=== PATIENT | female | born 1955 | race Caucasian/White ===

== ENCOUNTER → 2017-07-06 10:37 | Outpatient (REF) | payer MEDICAID, SELFPAY ==
[2017-07-06 13:26] LABS: Basophils % 0.5 % (0.1-2.0); Eosinophils # 0.1 K/mm3 (0.0-0.4); Eosinophils % 3.3 % (0.1-12.0); Hematocrit 42.1 % (37.0-47.0); Hemoglobin 13.7 g/dL (12.2-16.2); Lymphocytes # 1.5 K/mm3 (0.7-4.5); Lymphocytes % 35.1 K/mm3 (10-50); Mean Corpuscular HGB Conc 32.6 g/dL (31.8-35.4); Mean Corpuscular Hemoglobin 27.4 pg (27.0-31.2); Mean Corpuscular Volume 84.1 fl (81-99); Mean Platelet Volume 8.8 fl (7.4-10.4); Monocytes # 0.2 K/mm3 (0.1-1.0); Monocytes % 5.6 % (1.7-9.3); Neutrophils # 2.4 K/mm3 (1.8-7.8); Neutrophils % 55.5 % (37.0-80.0); Platelet Count 177 K/mm3 (142-424); Red Blood Count 5.01 M/mm3 (4.20-5.40); Red Cell Distribution Width 13.7 % (11.5-17.5); White Blood Count 4.3 K/mm3 (4.8-10.8)
[2017-07-06 13:51] LABS: Alanine Aminotransferase 44 U/L (12-78); Albumin Level 4.2 gm/dL (3.4-5.0); Albumin/Globulin Ratio 1.2 (1.1-1.8); Alkaline Phosphatase 87 U/L (46-116); Anion Gap 14.4 mEq/L (5-15); Aspartate Amino Transferase 38 U/L (15-37); Bilirubin,Total 0.6 mg/dL (0.2-1.0); Blood Urea Nitrogen 11 mg/dL (7-18); Calcium 9.8 mg/dL (8.5-10.1); Carbon Dioxide 28 mmol/L (21.0-32.0); Chloride 101 mmol/L (98-107); Chol/HDL Ratio 2.5 (1-3.5); Cholesterol 122 mg/dL (140-200); Creatinine,Serum 0.61 mg/dL (0.55-1.02); Estimated Glomerular Filt Rate 99 ml/min (>60); GFR (African American) 120 ML/MIN (>60); Globulin 3.4 gm/dl (1.3-3.2); Glucose 325 mg/dL (74-106); HDL Cholesterol 48 mg/dL (29-89); LDL Cholesterol 36 mg/dL (0-130); Potassium 4.4 mmoL/L (3.5-5.1); Sodium 139 mmol/L (136-145); T4 (Thyroxine) 10.9 ug/dl (4.7-13.3); Thyroid Stimulating Hormone 2.11 uIU/ml (0.358-3.740); Total Protein,Serum 7.6 gm/dL (6.4-8.2); Triglycerides 191 mg/dL (30-200); VLDL Cholesterol 38 mg/dL (0-40)
[2017-07-06 14:40] LABS: Hemoglobin A1C 9.6 % (0.0-7.0)
[2017-07-07 10:19] LABS: Vitamin B12 303 pg/mL (232-1245); Vitamin D 25 Hydroxy 26.1 ng/mL (30.0-100.0)
== END ==
LOC: LAB 10:37
PROVIDERS: Visit Provider Physician Assistant
DX: E11.9 Type 2 diabetes mellitus without complications (principal); E78.5 Hyperlipidemia, unspecified; D51.9 Vitamin B12 deficiency anemia, unspecified; E55.9 Vitamin D deficiency, unspecified
CPT/HCPCS: 80053; 80061; 82607; 82652; 83036; 84436; 84443; 85025

== ENCOUNTER → 2017-07-26 07:05 | Outpatient (CLI) | payer MEDICAID, SELFPAY ==
--- NOTE | 2017-07-26 07:07 | NM_ITS ---
SPECT MYOCARDIAL PERFUSION SCAN, REST AND STRESS: EXERCISE STRESS: [facility] REVIEW QGS EF AND WALL MOTION EVALUATION: QPS - PERFUSION EVALUATION: HISTORY: Chest pain PROCEDURE: Rest imaging performed after administration of10.51 millicuries Tc MIBI. Dose administered at7:30 a.m., with imaging thereafter. Stress imaging was then performed following6 minutes 46 seconds of exercise stress. The patient achieved a heart [id number] with projected heart rate of134 . Resting BP109/54 with stress 125/64. At maximum exercise stress,29.4 millicuries Tc MIBI administered at9:20 a.m. with [id number] minutes thereafter. FINDINGS: Perfusion Evaluation: The single slice spect images as well as the [facility] bull's-eye data summary were reviewed. Wall Motion and Ejection Fraction Evaluation: Gated SPECT review and analysis used to evaluate these features. There is a 67 % left ventricular ejection fraction. There seems to be good wall motion Uniform myocardial activity at both stress and rest gated images calculated ejection fraction of 67% with normal wall motion IMPRESSION: No scintigraphic evidence of exercise-induced myocardial ischemia normal ejection fraction normal wall motion
--- NOTE | 2017-07-26 09:51 | HMH.ITSHM ---
metformin glipizide invokana buspirone lipitor pramipril carvedilol asa omeprazole vit b3 vit d meclizine
== END ==
PROVIDERS: PCP Physician Assistant; Visit Provider Internal Medicine
DX: I25.10 Atherosclerotic heart disease of native coronary artery without angina pectoris (principal); I20.8 Other forms of angina pectoris; I11.9 Hypertensive heart disease without heart failure; E78.5 Hyperlipidemia, unspecified; E11.9 Type 2 diabetes mellitus without complications; R42 Dizziness and giddiness
CPT/HCPCS: 78452; 93017; 93306; A9502

== ENCOUNTER → 2018-05-08 14:47 | Outpatient (CLI) | payer MEDICAID, SELFPAY ==
[2018-05-08 15:17] LABS: Basophils # 0.1 K/mm3 (0-0.2); Eosinophils # 0.2 K/mm3 (0.0-0.4); Eosinophils % 3.2 % (0.1-12.0); Hematocrit 42.4 % (37.0-47.0); Lymphocytes # 1.6 K/mm3 (0.7-4.5); Lymphocytes % 30.4 % (10-50); Mean Corpuscular Hemoglobin 27.4 pg (27.0-31.2); Mean Platelet Volume 8.9 fl (7.4-10.4); Monocytes # 0.3 K/mm3 (0.1-1.0); Neutrophils # 3.2 K/mm3 (1.8-7.8); Neutrophils % 59.4 % (37.0-80.0); Platelet Count 236 K/mm3 (142-424); Red Blood Count 5.11 M/mm3 (4.20-5.40); Red Cell Distribution Width 14.2 % (11.5-17.5); White Blood Count 5.4 K/mm3 (4.8-10.8)
[2018-05-08 15:59] LABS: Alanine Aminotransferase 41 U/L (12-78); Albumin Level 4.2 gm/dL (3.4-5.0); Albumin/Globulin Ratio 1.1 (1.1-1.8); Alkaline Phosphatase 78 U/L (46-116); Anion Gap 16.3 mEq/L (5-15); Aspartate Amino Transferase 22 U/L (15-37); Bilirubin,Total 0.5 mg/dL (0.2-1.0); Blood Urea Nitrogen 14 mg/dL (7-18); Calcium 9.6 mg/dL (8.5-10.1); Carbon Dioxide 26 mmol/L (21.0-32.0); Chloride 101 mmol/L (98-107); Chol/HDL Ratio 3.6 (1-3.5); Cholesterol 211 mg/dL (140-200); Creatinine,Serum 0.63 mg/dL (0.55-1.02); Estimated Glomerular Filt Rate 95 ml/min (>60); GFR (African American) 115 ML/MIN (>60); Globulin 3.7 gm/dl (1.3-3.2); Glucose 190 mg/dL (74-106); HDL Cholesterol 58 mg/dL (29-89); LDL Cholesterol 106 mg/dL (0-130); Potassium 4.3 mmoL/L (3.5-5.1); Sodium 139 mmol/L (136-145); T4 (Thyroxine) 10.7 ug/dl (4.7-13.3); Thyroid Stimulating Hormone 2.07 uIU/ml (0.358-3.740); Total Protein,Serum 7.9 gm/dL (6.4-8.2); Triglycerides 234 mg/dL (30-200); VLDL Cholesterol 47 mg/dL (0-40)
[2018-05-08 16:24] LABS: Hemoglobin A1C 9.6 % (0.0-7.0)
[2018-05-12 10:06] LABS: Vitamin B12 265 pg/mL (232-1245); Vitamin D 25 Hydroxy 21.8 ng/mL (30.0-100.0)
[2018-05-12 10:08] LABS: Microalbumin, Urine 6.9 ug/mL (Not Estab.)
== END ==
PROVIDERS: Visit Provider Physician Assistant
DX: E11.9 Type 2 diabetes mellitus without complications (principal); E55.9 Vitamin D deficiency, unspecified; D51.9 Vitamin B12 deficiency anemia, unspecified; E78.5 Hyperlipidemia, unspecified
CPT/HCPCS: 80053; 80061; 82043; 82607; 82652; 83036; 84436; 84443; 85025

== ENCOUNTER → 2018-09-21 17:34 | Outpatient (CLI) | payer MEDICAID, SELFPAY | PROVIDERS: Visit Provider Nurse Practitioner Family | DX: J02.9 Acute pharyngitis, unspecified (principal) ==

== ENCOUNTER → 2018-10-16 13:29 | Outpatient (CLI) | payer MEDICAID, SELFPAY ==
[2018-10-16 14:32] LABS: Basophils # 0.1 K/mm3 (0-0.2); Eosinophils # 0.2 K/mm3 (0.0-0.4); Eosinophils % 3.4 % (0.1-12.0); Hematocrit 40.9 % (37.0-47.0); Hemoglobin 13.2 g/dL (12.2-16.2); Lymphocytes # 1.9 K/mm3 (0.7-4.5); Lymphocytes % 38.8 % (10-50); Mean Corpuscular HGB Conc 32.2 g/dL (31.8-35.4); Mean Corpuscular Hemoglobin 27.3 pg (27.0-31.2); Mean Corpuscular Volume 84.9 fl (81-99); Mean Platelet Volume 7.9 fl (7.4-10.4); Monocytes # 0.4 K/mm3 (0.1-1.0); Monocytes % 8.5 % (1.7-9.3); Neutrophils # 2.4 K/mm3 (1.8-7.8); Neutrophils % 48.3 % (37.0-80.0); Platelet Count 239 K/mm3 (142-424); Red Blood Count 4.82 M/mm3 (4.20-5.40); Red Cell Distribution Width 14.4 % (11.5-17.5); White Blood Count 4.9 K/mm3 (4.8-10.8)
[2018-10-16 14:55] LABS: Alanine Aminotransferase 37 U/L (12-78); Albumin Level 4.1 gm/dL (3.4-5.0); Albumin/Globulin Ratio 1.2 (1.1-1.8); Alkaline Phosphatase 89 U/L (46-116); Anion Gap 15.8 mEq/L (5-15); Aspartate Amino Transferase 16 U/L (15-37); Bilirubin,Total 0.4 mg/dL (0.2-1.0); Blood Urea Nitrogen 9 mg/dL (7-18); Calcium 9.7 mg/dL (8.5-10.1); Carbon Dioxide 26 mmol/L (21.0-32.0); Chloride 103 mmol/L (98-107); Chol/HDL Ratio 3.8 (1-3.5); Cholesterol 190 mg/dL (140-200); Creatinine,Serum 0.63 mg/dL (0.55-1.02); Estimated Glomerular Filt Rate 95 ml/min (>60); GFR (African American) 115 ML/MIN (>60); Globulin 3.5 gm/dl (1.3-3.2); Glucose 187 mg/dL (74-106); HDL Cholesterol 50 mg/dL (29-89); LDL Cholesterol 92 mg/dL (0-130); Potassium 3.8 mmoL/L (3.5-5.1); Sodium 141 mmol/L (136-145); T4 (Thyroxine) 10.7 ug/dl (4.7-13.3); Thyroid Stimulating Hormone 2.54 uIU/ml (0.358-3.740); Total Protein,Serum 7.6 gm/dL (6.4-8.2); Triglycerides 241 mg/dL (30-200); VLDL Cholesterol 48 mg/dL (0-40)
[2018-10-16 21:28] LABS: Hemoglobin A1C 8.9 % (0.0-7.0)
[2018-10-17 10:05] LABS: Vitamin D 25 Hydroxy 15.2 ng/mL (30.0-100.0)
== END ==
PROVIDERS: Visit Provider Physician Assistant
DX: E11.9 Type 2 diabetes mellitus without complications (principal); Z79.84 Long term (current) use of oral hypoglycemic drugs; Z79.4 Long term (current) use of insulin
CPT/HCPCS: 80053; 80061; 82652; 83036; 84436; 84443; 85025

== ENCOUNTER → 2019-02-19 13:48 | Outpatient (CLI) | payer MEDICAID, SELFPAY ==
[2019-02-19 15:17] LABS: Basophils % 0.8 % (0.1-2.0); Eosinophils # 0.2 K/mm3 (0.0-0.4); Eosinophils % 3.3 % (0.1-12.0); Hematocrit 40.6 % (37.0-47.0); Hemoglobin 13.4 g/dL (12.2-16.2); Lymphocytes # 1.7 K/mm3 (0.7-4.5); Mean Corpuscular HGB Conc 32.9 g/dL (31.8-35.4); Mean Corpuscular Hemoglobin 27.5 pg (27.0-31.2); Mean Corpuscular Volume 83.6 fl (81-99); Mean Platelet Volume 8.4 fl (7.4-10.4); Monocytes # 0.3 K/mm3 (0.1-1.0); Monocytes % 6.7 % (1.7-9.3); Neutrophils # 2.7 K/mm3 (1.8-7.8); Neutrophils % 55.3 % (37.0-80.0); Platelet Count 228 K/mm3 (142-424); Red Blood Count 4.86 M/mm3 (4.20-5.40); Red Cell Distribution Width 14.1 % (11.5-17.5); White Blood Count 4.9 K/mm3 (4.8-10.8)
[2019-02-19 16:42] LABS: Hemoglobin A1C 7.8 % (0.0-7.0)
[2019-02-19 18:15] LABS: Alanine Aminotransferase 30 U/L (12-78); Albumin/Globulin Ratio 1.3 (1.1-1.8); Alkaline Phosphatase 62 U/L (46-116); Anion Gap 17.2 mEq/L (5-15); Aspartate Amino Transferase 17 U/L (15-37); Bilirubin,Total 0.4 mg/dL (0.2-1.0); Blood Urea Nitrogen 14 mg/dL (7-18); Carbon Dioxide 27 mmol/L (21.0-32.0); Chloride 102 mmol/L (98-107); Chol/HDL Ratio 2.8 (1-3.5); Cholesterol 156 mg/dL (140-200); Creatinine,Serum 0.65 mg/dL (0.55-1.02); Estimated Glomerular Filt Rate 92 ml/min (>60); GFR (African American) 111 ML/MIN (>60); Globulin 3.2 gm/dl (1.3-3.2); Glucose 153 mg/dL (74-106); HDL Cholesterol 56 mg/dL (29-89); LDL Cholesterol 61 mg/dL (0-130); Potassium 4.2 mmoL/L (3.5-5.1); Sodium 142 mmol/L (136-145); Thyroid Stimulating Hormone 3.34 uIU/ml (0.358-3.740); Total Protein,Serum 7.2 gm/dL (6.4-8.2); Triglycerides 193 mg/dL (30-200); VLDL Cholesterol 39 mg/dL (0-40)
[2019-02-19 18:22] LABS: Calcium 9.1 mg/dL (8.5-10.1)
[2019-02-21 11:46] LABS: Vitamin D 25 Hydroxy 22.5 ng/mL (30.0-100.0)
== END ==
PROVIDERS: Visit Provider Physician Assistant
DX: E11.9 Type 2 diabetes mellitus without complications (principal); E55.9 Vitamin D deficiency, unspecified; Z79.4 Long term (current) use of insulin
CPT/HCPCS: 80053; 80061; 82652; 83036; 84436; 84443; 85025

== ENCOUNTER → 2019-11-07 15:54 | Outpatient (CLI) | payer MEDICAID, SELFPAY ==
[2019-11-07 16:52] LABS: Basophils % 0.8 % (0.1-2.0); Eosinophils # 0.2 K/mm3 (0.0-0.4); Eosinophils % 4.4 % (0.1-12.0); Hematocrit 40.8 % (37.0-47.0); Hemoglobin 13.2 g/dL (12.2-16.2); Lymphocytes # 1.6 K/mm3 (0.7-4.5); Lymphocytes % 34.2 % (10-50); Mean Corpuscular HGB Conc 32.2 g/dL (31.8-35.4); Mean Corpuscular Hemoglobin 27.4 pg (27.0-31.2); Mean Corpuscular Volume 84.9 fl (81-99); Mean Platelet Volume 9.2 fl (7.4-10.4); Monocytes # 0.3 K/mm3 (0.1-1.0); Monocytes % 6.9 % (1.7-9.3); Neutrophils # 2.6 K/mm3 (1.8-7.8); Neutrophils % 53.6 % (37.0-80.0); Platelet Count 216 K/mm3 (142-424); Red Blood Count 4.81 M/mm3 (4.20-5.40); Red Cell Distribution Width 14.7 % (11.5-17.5); White Blood Count 4.8 K/mm3 (4.8-10.8)
[2019-11-07 17:31] LABS: Alanine Aminotransferase 33 U/L (12-78); Albumin Level 4.5 g/dl (3.5-5.0); Albumin/Globulin Ratio 1.4 (1.1-1.8); Alkaline Phosphatase 64 U/L (38-126); Anion Gap 15.1 mEq/L (5-15); Aspartate Amino Transferase 37 U/L (14-36); Bilirubin,Total 0.6 mg/dl (0.2-1.3); Blood Urea Nitrogen 18 mg/dl (7-17); Calcium 9.9 mg/dl (8.4-10.2); Carbon Dioxide 27 mmol/L (22.0-30.0); Chloride 102 mmol/L (98-107); Chol/HDL Ratio 2.2 (1-3.5); Cholesterol 144 mg/dl (140-200); Estimated Glomerular Filt Rate 101 ml/min (>60); GFR (African American) 122 ML/MIN (>60); Globulin 3.2 g/dL (1.3-3.2); Glucose 143 mg/dl (74-100); HDL Cholesterol 66 mg/dl (40-60); Potassium 4.1 mmoL/L (3.5-5.1); Sodium 140 mmol/L (136-145); Total Protein,Serum 7.7 g/dl (6.3-8.2); Triglycerides 193 mg/dl (30-150); VLDL Cholesterol 39 mg/dL (0-40)
[2019-11-07 17:33] LABS: Hemoglobin A1C 7.8 % (4.0-6.0)
[2019-11-07 17:41] LABS: Direct LDL Cholesterol 56.45 mg/dL (100-129)
[2019-11-07 17:47] LABS: 25-OH Vitamin D, Total 42.7 ng/mL (30-100); T4 (Thyroxine) 10.3 ug/dl (5.53-11.0)
[2019-11-07 18:00] LABS: Thyroid Stimulating Hormone 2.03 uIU/mL (0.465-4.68)
[2019-11-08 12:34] LABS: Vitamin B12 203 pg/mL (239-931)
== END ==
PROVIDERS: Visit Provider Physician Assistant
DX: E11.9 Type 2 diabetes mellitus without complications (principal); R20.0 Anesthesia of skin; Z79.4 Long term (current) use of insulin
CPT/HCPCS: 80053; 80061; 82306; 82607; 83036; 84436; 84443; 85025

== ENCOUNTER → 2020-01-03 13:43 | Outpatient (CLI) | payer MEDICAID, SELFPAY ==
--- NOTE | 2020-01-03 13:46 | XR_ITS ---
PROCEDURE: XR WRIST RT MIN 3V CLINICAL INDICATION: Hand/wrist pain COMPARISON: No exams were available for comparison FINDINGS: No fracture or dislocation. No lytic or blastic change. There is normal mineralization. The joint spaces are well-preserved. No significant degenerative/arthritic changes. No erosive changes evident. Other findings:There well-circumscribed calcific densities at the tip the ulnar styloid process and may be due to ununited ossification centers IMPRESSION: No acute findings. Dictated by: Fady Galloway MD 01/03/2020 15:22 Fady Galloway MD in [place] 01/03/2020 15:22
--- NOTE | 2020-01-03 13:46 | XR_ITS ---
PROCEDURE: XR WRIST LT MIN 3V CLINICAL INDICATION: LT wrist pain COMPARISON: No exams were available for comparison FINDINGS: No fracture or dislocation. No lytic or blastic change. There is normal mineralization. There is mild widening of the scapholunate space which may be seen with ligamentous injury. Otherwise negative Other findings:. IMPRESSION: Mild widening of the scapholunate space otherwise negative Dictated by: Fady Galloway MD 01/03/2020 15:22 Fady Galloway MD in [place] 01/03/2020 15:22
== END ==
PROVIDERS: PCP Physician Assistant; Visit Provider Orthopaedic Surgery
DX: M25.532 Pain in left wrist (principal); M25.531 Pain in right wrist
CPT/HCPCS: 73110

== ENCOUNTER → 2020-01-13 10:36 | Outpatient (CLI) | payer MEDICAID, SELFPAY ==
[2020-01-13 10:40] LABS: MANUAL DIFFERENTIAL MANUAL DIFFERENTIAL (MANUAL DIFF)
[2020-01-13 10:50] LABS: Basophils % 0.7 % (0.1-2.0); Eosinophils # 0.2 K/mm3 (0.0-0.4); Eosinophils % 3.4 % (0.1-12.0); Hematocrit 43.9 % (37.0-47.0); Hemoglobin 14.1 g/dL (12.2-16.2); Lymphocytes # 1.6 K/mm3 (0.7-4.5); Mean Corpuscular HGB Conc 32.1 g/dL (31.8-35.4); Monocytes # 0.4 K/mm3 (0.1-1.0); Neutrophils # 3.2 K/mm3 (1.8-7.8); Neutrophils % 58.9 % (37.0-80.0); Platelet Count 212 K/mm3 (142-424); Red Blood Count 5.22 M/mm3 (4.20-5.40); Red Cell Distribution Width 14.7 % (11.5-17.5); White Blood Count 5.4 K/mm3 (4.8-10.8)
[2020-01-13 12:05] LABS: Coronavirus 19 IgG Antibody Negative (Negative); Coronavirus 19 IgM Antibody Negative (Negative)
[2020-01-13 12:06] LABS: Chloride 101 mmol/L (98-107); Potassium 4.4 mmoL/L (3.5-5.1); Sodium 141 mmol/L (136-145)
[2020-01-13 12:09] LABS: Alanine Aminotransferase 30 U/L (12-78); Albumin Level 4.6 g/dl (3.5-5.0); Albumin/Globulin Ratio 1.6 (1.1-1.8); Alkaline Phosphatase 45 U/L (38-126); Anion Gap 16.4 mEq/L (5-15); Aspartate Amino Transferase 33 U/L (14-36); Bilirubin,Total 0.6 mg/dl (0.2-1.3); Blood Urea Nitrogen 15 mg/dl (7-17); Carbon Dioxide 28 mmol/L (22.0-30.0); Estimated Glomerular Filt Rate 101 ml/min (>60); GFR (African American) 122 ML/MIN (>60); Globulin 2.8 g/dL (1.3-3.2); Glucose 142 mg/dl (74-100); Total Protein,Serum 7.4 g/dl (6.3-8.2)
[2020-01-13 14:31] LABS: Eosinophils % 2 % (0-3); Lymphocytes % 22 % (10-50); Monocytes % 14 % (2-9); Neutrophils % 60 % (42-76); Platelet Estimate Normal; RBC Morphology Normal; Total Cells Counted 100
== END ==
PROVIDERS: Visit Provider Orthopaedic Surgery
DX: Z01.818 Encounter for other preprocedural examination (principal); G56.02 Carpal tunnel syndrome, left upper limb
CPT/HCPCS: 36415; 80053; 85007; 85014; 85018; 85048; 85049; 86328

== ENCOUNTER 2020-01-13 10:52 | Outpatient (RCR) | payer MEDICAID, SELFPAY ==
--- NOTE | 2020-01-13 14:10 | HMH.OTOPEV ---
OT Inpatient Evaluation Rehab OT Outpatient Eval Start: 01/13/20 13:52 Freq: Status: Active Protocol: Document 01/13/20 13:52 HANS (Rec: 01[facility]13[facility]20 14[facility]10 [id number] Electronically Signed By Mic Lucero OT 01/13/20 13:52 Outpatient Therapy Subjective History Subjective History Pt is a 64 year old female who reports to therapy for initial evaluation to right elbow and wrist. Pt reports ~ 10 weeks ago she started having CTS symptoms and increased stiffness/tightness at right elbow. Pt does not recall a specific injury causing pain/symptoms to begin . Pt does demonstrate with decreased AROM and strength at right elbow. Pt also has decreased strength at right wrist. Pt will continue to be seen twice a week in order to address all deficits. Chief Complaint Pain,Stiff,Weakness,Decreased Trimmer Press Clippings Strength,Decreased Coordination Symptom Type Ache,Throb,Sharp,Dull,Stabbing Symptoms Relieved By Nothing Symptoms Aggravated By Physical Activity,Lifting Prior Functional Limitations None Current Functional Limitations Reaching,Lifting,Housework, Sleeping,Recreation Activity Symptom Description Constant but Variable Level of pain today (0-10) 8 Pain scale - at its best (0-10) 3 Pain scale - at its worst (0-10) 10 Shoulder/Elbow Eval Shoulder Objective Measurements Elbow Objective Measurements Elbow ROM Right Elbow Extension Active Range of Motion ( -45 degrees degrees) Elbow Flexion Active Range of Motion ( 130 degrees degrees) Elbow Pronation of Forearm Range of 35 degrees Motion (degrees) Elbow Supination of Forearm Range of 90 degrees Motion (degrees) Elbow MMT Elbow Flexion Strength Grade 3- Fair- Elbow Extension Strength Grade 3- Fair- Wrist/Hand Eval Wrist Range of Motion Wrist Extension Active Range of Motion ( 60 degrees degrees) Wrist Flexion Active Range of Motion ( 60 degrees degrees) Wrist Radial Deviation Active Range of 25 degrees Motion (degrees) Wrist Ulnar Deviation Active Range of 25 degrees Motion (degrees) Wrist Manual Muscle Testing Right Wrist Extension Strength Grade 4- Good-
== END 2020-01-13 10:55 | disposition home or self-care (01) ==
LOC: OT 10:52
PROVIDERS: PCP Physician Assistant; Visit Provider Orthopaedic Surgery
DX: G56.01 Carpal tunnel syndrome, right upper limb (principal)
CPT/HCPCS: 97166

== ENCOUNTER 2020-01-14 11:19 | Day surgery (SDC) | payer MEDICAID, SELFPAY ==
[2020-01-09 14:36] VITALS: BMI 23.8
[2020-01-14 11:54] VITALS: BP 113/86; PULSE 83; RESP 18; TEMP 36.4; O2SAT 98
[2020-01-14 13:36] VITALS: TEMP 43
[2020-01-14 13:50] VITALS: BP 89/55; PULSE 87; RESP 16; TEMP 36.5; O2SAT 94
--- NOTE | 2020-01-14 13:55 | P.PN_ITS ---
[facility] Anesthesia Checklist - Patient Identification Patient Identification: Arm Band - Structural Data Admitted From: Home Planned Operative Procedure/s: Left Carpal Tunnel Release Consent for Planned Operative Procedure(s) Verified: Yes Verified Documents: Surgical Consent, History and Physical - NPO Status Verified Time NPO: 00:00 - Additional verifications Anesthesia Reactions: No Hx Blood Transfusions: No Blood Transfusion Reaction: No - Airway Assessment C-Spine Mobility Assessed: Yes (mp2) TMJ Mobility Assessed: Yes Dentition: Good Dentition (upper dentures) - Neurological Assessment Level of Consciousness: Awake, Alert - Anesthesia Plan Anesthesia Risk discussed: Yes Anesthesia Plan: Verified ASA Class: III Anesthesia Type: MAC [facility] History I have reviewed the patient's past medical history: Yes Medical History: Reports:: Congestive Heart Failure, Coronary Artery Disease, Diabetes Mellitus Type 2, Hyperlipidemia Denies:: Cancer, Diabetes Mellitus Type 1, Internal Pacemaker, MRSA, Seizures *Have you ever received a pneumonia vaccine?: No *Have you received a flu vaccine this season?: No Other Medical History: Denies: Blood Transfusion Reaction Anesthesia experience/problems:: nac Other Surgeries: Yes: Appendectomy, Cholecystectomy, Hysterectomy-Total, Hysterectomy-Partial. No: Pacemaker Amputation: No Fractures: No - *Social History Last grade of school completed: 11th or 12th Smoking Status: Former smoker Smoking End Date: 01/04/2010 Alcohol Intake: never Alcohol Intake Frequency:: other Substance Use Type: denies use *Occupational Status:: retired Housing: house Household Members: spouse *Travel in the last 8 weeks: None Family Hx:: Diabetes, Hyperlipidemia, Hypertension
[2020-01-14 14:00] VITALS: BP 98/56; PULSE 80; RESP 16; O2SAT 96
[2020-01-14 14:10] VITALS: BP 104/65; PULSE 86; RESP 16; O2SAT 96
[2020-01-14 14:20] VITALS: BP 130/83; PULSE 84; RESP 16; TEMP 36.5; O2SAT 96
--- NOTE | 2020-01-14 14:21 | HMH.OPNOTE ---
Date of procedure: 01/14/20 Pre-op Diagnosis:: LEFT carpal tunnel syndrome Post-op Diagnosis:: LEFT carpal tunnel syndrome Procedure performed:: LEFT carpal tunnel release Surgeon:: Gricel Reza MD Aquaculture Worker(s):: Elvi Wallace [employer]NER:: [place] Anesthesia: MAC, local Estimated blood loss (mL): 5 Clinical Note:: 64-year-old [id number] female with pain, numbness and tingling in bilateral hands as well as pain throughout the right upper extremity extending from the elbow distally. She has pain on the right side in the antecubital fossa, lateral elbow, lateral wrist, and throughout the hand. Bilateral hands have pain, numbness and tingling predominantly in the median distribution but she does report some pain on the ulnar side as well. She feels as if her entire hand goes numb. Symptoms have been present for at least 6 months; EMG was performed on 11/18/2019. She denies neck pain or pain, numbness or tingling radiating from the neck down both arms. She has a medical history significant for hypertension, anxiety, GERD, vitamin B12 and vitamin D deficiency, diabetes, hyperlipidemia and coronary artery disease. She takes no anticoagulants. She does take insulin for her diabetes. EMG?NCS of BUE performed at [facility] on 11/18/2019 demonstrate evidence of bilateral median nerve entrapment at the wrist, carpal tunnel syndrome; this is electrophysiologically moderate/severe bilaterally. Additionally the EMG shows chronic neuropathic changes involving the left abductor pollicis brevis muscle. Based on her exam I suspect she has deQuervain's tenosynovitis as well as distal biceps tendinosis vs partial thickness tear, in addition to lateral epicondylitis of the RUE. We are starting physical therapy for all of the above. With regards to the carpal tunnel syndrome, I have discussed both surgical and non-surgical options for treating this, and the patient would like to proceed with L CTR at this time. I discussed the risks of carpal tunnel release with the patient, including but not limited to: bleeding, infection, neurovascular damage, wound dehiscence, persistence of symptoms despite surgery, recurrence of CTS and need for revision surgery in the future. The patient vocalized understanding and provided informed consent for the procedure. Operative findings:: median nerve compression at the left wrist Operative note:: The patient was identified in preoperative holding and the L wrist signed by myself. She was then seen by anesthesia and the decision was made to perform the procedure under local w/MAC. I reviewed the consent with the patient, answering any questions. She was then taken to the OR and placed supine on the operative table. 1 gram Ancef was infused intravenously and then the anesthesia provider sedated the pateint lightly with intravenous medication. The L upper extremity was then prepped and draped in the usual sterile fashion with a nonsterile tourniquet on the left upper arm. Timeout was performed, identifying the correct patient, correct procedure, and correct site. The procedure was begun by placing the patient's L hand in an extended/supinated position. The planned surgical incision was drawn using anatomic landmarks specifically at the intersection of Stanton's cardinal line and the radial border of the ring finger, extending proximally to the wrist flexion crease. This was then anesthetized with local anesthetic, 10cc of a 1:1 mixture of 0.5% marcaine and 1% lidocaine, both w/o epinephrine. This was given a few minutes to set up, and when the patient was numb, the procedure was begun. The limb was exsanguinated with an esmarch and the tourniquet inflated to 250mmHg. The procedure was begun by making an incision over the volar aspect of the wrist in a longitudinal fashion following our previously delineated line. After the skin was incised, a blunt-tipped tenotomy scissors was used to bluntly spread the subcutaneous tissue
[2020-01-15 08:51] LABS: POC Glucose,Bedside 96 (70-110)
== END 2020-01-14 14:21 | disposition home or self-care (01) ==
PROVIDERS: PCP Physician Assistant; Visit Provider Orthopaedic Surgery
PROC: (CPT 64721; principal; 2020-01-14 13:00)
DX: G56.02 Carpal tunnel syndrome, left upper limb (principal); E11.9 Type 2 diabetes mellitus without complications; Z79.4 Long term (current) use of insulin
CPT/HCPCS: 64721; 82962; 96374

== ENCOUNTER → 2020-03-26 14:41 | Outpatient (CLI) | payer MEDICARE, MEDICAID, SELFPAY ==
[2020-03-26 15:38] LABS: Basophils % 0.7 % (0.1-2.0); Eosinophils # 0.2 K/mm3 (0.0-0.4); Eosinophils % 2.7 % (0.1-12.0); Hematocrit 42.8 % (37.0-47.0); Hemoglobin 13.9 g/dL (12.2-16.2); Lymphocytes # 1.9 K/mm3 (0.7-4.5); Lymphocytes % 32.8 % (10-50); Mean Corpuscular HGB Conc 32.6 g/dL (31.8-35.4); Mean Corpuscular Hemoglobin 27.4 pg (27.0-31.2); Mean Corpuscular Volume 84.1 fl (81-99); Mean Platelet Volume 8.8 fl (7.4-10.4); Monocytes # 0.4 K/mm3 (0.1-1.0); Monocytes % 7.5 % (1.7-9.3); Neutrophils # 3.3 K/mm3 (1.8-7.8); Neutrophils % 56.3 % (37.0-80.0); Platelet Count 240 K/mm3 (142-424); Red Blood Count 5.09 M/mm3 (4.20-5.40); Red Cell Distribution Width 14.9 % (11.5-17.5); White Blood Count 5.8 K/mm3 (4.8-10.8)
[2020-03-26 15:50] LABS: Alanine Aminotransferase 27 U/L (12-78); Albumin Level 4.9 g/dl (3.5-5.0); Albumin/Globulin Ratio 1.4 (1.1-1.8); Alkaline Phosphatase 78 U/L (38-126); Anion Gap 13.4 mEq/L (5-15); Aspartate Amino Transferase 30 U/L (14-36); Bilirubin,Total 0.4 mg/dl (0.2-1.3); Blood Urea Nitrogen 12 mg/dl (7-17); Calcium 10.3 mg/dl (8.4-10.2); Carbon Dioxide 30 mmol/L (22.0-30.0); Chloride 103 mmol/L (98-107); Cholesterol 166 mg/dl (140-200); Estimated Glomerular Filt Rate 100 ml/min (>60); GFR (African American) 121 ML/MIN (>60); Globulin 3.4 g/dL (1.3-3.2); Glucose 162 mg/dl (74-100); HDL Cholesterol 81 mg/dl (40-60); Potassium 4.4 mmoL/L (3.5-5.1); Sodium 142 mmol/L (136-145); Total Protein,Serum 8.3 g/dl (6.3-8.2); Triglycerides 111 mg/dl (30-150); VLDL Cholesterol 22 mg/dL (0-40)
[2020-03-26 15:58] LABS: Hemoglobin A1C 7.1 % (4.0-6.0)
[2020-03-26 16:01] LABS: Direct LDL Cholesterol 59.03 mg/dL (100-129)
[2020-03-26 16:06] LABS: 25-OH Vitamin D, Total 27.7 ng/mL (30-100)
[2020-03-26 16:07] LABS: Free T4 (Free Thyroxine) 1.37 ng/dl (0.78-2.19)
[2020-03-26 16:22] LABS: Thyroid Stimulating Hormone 2.41 uIU/mL (0.465-4.68)
[2020-03-26 16:40] LABS: Coronavirus 19 IgG Antibody Negative (Negative); Coronavirus 19 IgM Antibody Negative (Negative)
== END ==
PROVIDERS: Visit Provider Physician Assistant
DX: D51.9 Vitamin B12 deficiency anemia, unspecified (principal); E11.9 Type 2 diabetes mellitus without complications; E55.9 Vitamin D deficiency, unspecified; E78.5 Hyperlipidemia, unspecified; I10 Essential (primary) hypertension; R53.83 Other fatigue; Z20.822 Contact with and (suspected) exposure to COVID-19; Z79.4 Long term (current) use of insulin
CPT/HCPCS: 80053; 80061; 82043; 82306; 83036; 84439; 84443; 85025; 86328

== ENCOUNTER → 2020-09-02 18:02 | Outpatient (CLI) | payer MEDICARE, MEDICAID, SELFPAY ==
[2020-09-02 19:18] LABS: Alanine Aminotransferase 36 U/L (12-78); Albumin Level 4.6 g/dl (3.5-5.0); Albumin/Globulin Ratio 1.6 (1.1-1.8); Alkaline Phosphatase 70 U/L (38-126); Anion Gap 16.4 mEq/L (5-15); Aspartate Amino Transferase 38 U/L (14-36); Basophils % 0.4 % (0.1-2.0); Bilirubin,Total 0.6 mg/dl (0.2-1.3); Blood Urea Nitrogen 15 mg/dl (7-17); Calcium 9.4 mg/dl (8.4-10.2); Carbon Dioxide 28 mmol/L (22.0-30.0); Chloride 102 mmol/L (98-107); Chol/HDL Ratio 1.9 (1-3.5); Cholesterol 132 mg/dl (140-200); Eosinophils # 0.2 K/mm3 (0.0-0.4); Eosinophils % 1.8 % (0.1-12.0); Estimated Glomerular Filt Rate 100 ml/min (>60); GFR (African American) 121 ML/MIN (>60); Globulin 2.9 g/dL (1.3-3.2); Glucose 106 mg/dl (74-100); HDL Cholesterol 68 mg/dl (40-60); Hematocrit 39.7 % (37.0-47.0); Hemoglobin 12.6 g/dL (12.2-16.2); Lymphocytes # 1.8 K/mm3 (0.7-4.5); Lymphocytes % 20.7 % (10-50); Mean Corpuscular HGB Conc 31.7 g/dL (31.8-35.4); Mean Corpuscular Hemoglobin 26.8 pg (27.0-31.2); Mean Corpuscular Volume 84.5 fl (81-99); Monocytes # 0.6 K/mm3 (0.1-1.0); Monocytes % 7.1 % (1.7-9.3); Neutrophils # 6.2 K/mm3 (1.8-7.8); Neutrophils % 70.1 % (37.0-80.0); Platelet Count 195 K/mm3 (142-424); Potassium 4.4 mmoL/L (3.5-5.1); Red Cell Distribution Width 14.7 % (11.5-17.5); Sodium 142 mmol/L (136-145); Total Protein,Serum 7.5 g/dl (6.3-8.2); Triglycerides 197 mg/dl (30-150); VLDL Cholesterol 39 mg/dL (0-40); White Blood Count 8.9 K/mm3 (4.8-10.8)
[2020-09-02 19:29] LABS: Direct LDL Cholesterol 40.96 mg/dL (100-129)
[2020-09-02 19:31] LABS: Microalbumin < 6.000 mg/L (0-16.7)
[2020-09-02 20:47] LABS: 25-OH Vitamin D, Total 33.2 ng/mL (30-100)
[2020-09-02 20:48] LABS: Free T4 (Free Thyroxine) 1.16 ng/dl (0.78-2.19)
[2020-09-02 21:02] LABS: Thyroid Stimulating Hormone 1.28 uIU/mL (0.465-4.68)
[2020-09-02 22:31] LABS: Hemoglobin A1C 7.1 % (4.0-6.0)
== END ==
PROVIDERS: Visit Provider Physician Assistant
DX: E11.9 Type 2 diabetes mellitus without complications (principal); I10 Essential (primary) hypertension; E55.9 Vitamin D deficiency, unspecified; Z79.4 Long term (current) use of insulin
CPT/HCPCS: 80053; 80061; 82043; 82306; 83036; 84439; 84443; 85025

== ENCOUNTER → 2020-09-21 09:41 | Outpatient (CLI) | payer MEDICARE, MEDICAID, SELFPAY | PROVIDERS: PCP Physician Assistant; Visit Provider Physician Assistant | DX: Z20.822 Contact with and (suspected) exposure to COVID-19 (principal) | CPT/HCPCS: U0003 ==

== ENCOUNTER → 2021-04-13 16:00 | Outpatient (CLI) | payer MEDICARE, MEDICAID, SELFPAY ==
[2021-04-13 18:19] LABS: Basophils # 0.1 K/mm3 (0-0.2); Basophils % 1.9 % (0.1-2.0); Eosinophils # 0.2 K/mm3 (0.0-0.4); Hematocrit 45.7 % (37.0-47.0); Hemoglobin 14.1 g/dL (12.2-16.2); Lymphocytes # 1.9 K/mm3 (0.7-4.5); Lymphocytes % 37.2 % (10-50); Mean Corpuscular HGB Conc 30.9 g/dL (31.8-35.4); Mean Corpuscular Hemoglobin 27.3 pg (27.0-31.2); Mean Corpuscular Volume 88.4 fl (81-99); Mean Platelet Volume 9.8 fl (7.4-10.4); Monocytes # 0.4 K/mm3 (0.1-1.0); Monocytes % 8.4 % (1.7-9.3); Neutrophils # 2.5 K/mm3 (1.8-7.8); Neutrophils % 49.5 % (37.0-80.0); Platelet Count 237 K/mm3 (142-424); Red Blood Count 5.17 M/mm3 (4.20-5.40); Red Cell Distribution Width 15.2 % (11.5-17.5)
[2021-04-13 18:37] LABS: Hemoglobin A1C 8.2 % (4.0-6.0)
[2021-04-13 19:02] LABS: Alanine Aminotransferase 37 U/L (12-78); Albumin/Globulin Ratio 1.9 (1.1-1.8); Alkaline Phosphatase 65 U/L (38-126); Aspartate Amino Transferase 40 U/L (14-36); Bilirubin,Total 0.7 mg/dl (0.2-1.3); Blood Urea Nitrogen 15 mg/dl (7-17); Calcium 9.9 mg/dl (8.4-10.2); Carbon Dioxide 29 mmol/L (22.0-30.0); Chloride 101 mmol/L (98-107); Chol/HDL Ratio 3.2 (1-3.5); Cholesterol 224 mg/dl (140-200); Estimated Glomerular Filt Rate 123 ml/min (>60); GFR (African American) 149 ML/MIN (>60); Globulin 2.7 g/dL (1.3-3.2); Glucose 123 mg/dl (74-100); HDL Cholesterol 69 mg/dl (40-60); Sodium 140 mmol/L (136-145); Total Protein,Serum 7.7 g/dl (6.3-8.2); Triglycerides 198 mg/dl (30-150); VLDL Cholesterol 40 mg/dL (0-40)
[2021-04-13 19:14] LABS: Direct LDL Cholesterol 116.55 mg/dL (100-129)
[2021-04-13 19:20] LABS: 25-OH Vitamin D, Total 27.2 ng/mL (30-100)
[2021-04-13 19:33] LABS: Thyroid Stimulating Hormone 1.67 uIU/mL (0.465-4.68)
== END ==
PROVIDERS: Visit Provider Physician Assistant
DX: E55.9 Vitamin D deficiency, unspecified (principal); E11.9 Type 2 diabetes mellitus without complications; I10 Essential (primary) hypertension; Z79.4 Long term (current) use of insulin
CPT/HCPCS: 80053; 80061; 82306; 83036; 84443; 85025

== ENCOUNTER → 2021-04-27 08:56 | Outpatient (CLI) | payer MEDICARE, MEDICAID, SELFPAY ==
--- NOTE | 2021-04-27 08:57 | XR_ITS ---
FINAL REPORT TECHNIQUE: Bone densitometry calculations of the lumbar spine and left hip were obtained. CLINICAL HISTORY: . post menopausal FINDINGS: Using L1-4, the bone mineral density of the spine is 0.990 g/cm2, corresponding to T-score of -0.5. Using the left hip, the bone mineral density of the femoral neck is 0.769 g/cm2, corresponding to a T-score of -1.4. IMPRESSION: Normal bone mineral density of the lumbar spine with osteopenia of the left hip. Based on FRAX there is an 8.7% 10 year fracture risk for major osteoporotic fracture and 0.9% risk for hip fracture. Reviewed, Interpreted and Dictated by Wan Miranda MD Transcribed by Ankit Haines Authenticated by Wan Miranda MD on 04/27/2021 10:14:38 AM [facility]
== END ==
PROVIDERS: PCP Physician Assistant; Visit Provider Physician Assistant
DX: Z78.0 Asymptomatic menopausal state (principal)
CPT/HCPCS: 77080

== ENCOUNTER → 2021-07-29 10:21 | Outpatient (CLI) | payer MEDICARE, MEDICAID, SELFPAY ==
[2021-07-29 18:39] LABS: Alanine Aminotransferase 35 U/L (12-78); Albumin Level 4.4 g/dl (3.5-5.0); Albumin/Globulin Ratio 1.5 (1.1-1.8); Alkaline Phosphatase 65 U/L (38-126); Anion Gap 15.2 mEq/L (5-15); Aspartate Amino Transferase 49 U/L (14-36); Bilirubin,Total 0.6 mg/dl (0.2-1.3); Blood Urea Nitrogen 14 mg/dl (7-17); Calcium 9.8 mg/dl (8.4-10.2); Carbon Dioxide 28 mmol/L (22.0-30.0); Chloride 99 mmol/L (98-107); Estimated Glomerular Filt Rate 100 ml/min (>60); GFR (African American) 121 ML/MIN (>60); Glucose 131 mg/dl (74-100); Potassium 4.2 mmoL/L (3.5-5.1); Sodium 138 mmol/L (136-145); Total Protein,Serum 7.4 g/dl (6.3-8.2)
[2021-07-29 18:41] LABS: Basophils # 0.1 K/mm3 (0-0.2); Basophils % 1.4 % (0.1-2.0); Eosinophils # 0.1 K/mm3 (0.0-0.4); Hematocrit 43.1 % (37.0-47.0); Hemoglobin 13.9 g/dL (12.2-16.2); Lymphocytes # 1.8 K/mm3 (0.7-4.5); Lymphocytes % 30.2 % (10-50); Mean Corpuscular HGB Conc 32.3 g/dL (31.8-35.4); Mean Corpuscular Hemoglobin 28.4 pg (27.0-31.2); Mean Corpuscular Volume 87.9 fl (81-99); Mean Platelet Volume 10.9 fl (7.4-10.4); Monocytes # 0.5 K/mm3 (0.1-1.0); Monocytes % 7.5 % (1.7-9.3); Neutrophils # 3.6 K/mm3 (1.8-7.8); Platelet Count 215 K/mm3 (142-424); Red Cell Distribution Width 14.9 % (11.5-17.5); White Blood Count 6.1 K/mm3 (4.8-10.8)
[2021-07-29 18:44] LABS: C-Reactive Protein 1.4 mg/L (0-4)
[2021-07-29 19:27] LABS: Vitamin B12 475 pg/mL (239-931)
[2021-07-29 19:30] LABS: Erythrocyte Sedimentation Rate 16 mm/hr (0-30)
[2021-08-03 00:13] LABS: Anti-Cyclic Citrullinated Pept 1 units (0-19)
[2021-08-03 16:02] LABS: Anti-Centromere B Antibodies <0.2 AI (0.0-0.9); Anti-DNA (DS) Ab Qn <1 IU/mL (0-9); Anti-Jo-1 <0.2 AI (0.0-0.9); Anti-Smith Antibody <0.2 AI (0.0-0.9); Antichromatin Antibodies <0.2 AI (0.0-0.9); Antiscleroderma-70 Antibodies <0.2 AI (0.0-0.9); RNP Antibodies <0.2 AI (0.0-0.9); Sjogren's Anti-SS-A <0.2 AI (0.0-0.9); Sjogren's Anti-SS-B <0.2 AI (0.0-0.9)
== END ==
PROVIDERS: PCP Physician Assistant; Visit Provider Physician Assistant
DX: R53.83 Other fatigue (principal); E55.9 Vitamin D deficiency, unspecified; R40.0 Somnolence
CPT/HCPCS: 80053; 82306; 82607; 85025; 85651; 86140; 86200; 86225; 86235; 86431

== ENCOUNTER 2021-10-10 12:18 | Emergency (ER) | payer MEDICARE, MEDICAID, SELFPAY ==
[2021-10-10] VITALS (9 sets, daily range): BP systolic 100–132; BP diastolic 43–85; PULSE 56–103; RESP 18; TEMP 37.2–37.6; O2SAT 92–99; BMI 24.6
--- NOTE | 2021-10-10 12:35 | PC.NURSE ---
1233 ED MD AT BEDSIDE FOR EVALUATION
[2021-10-10 12:42] LABS: Coronavirus 19, PCR Not Detected (NotDetected); Influenza A, PCR Not Detected (NotDetected); Influenza B, PCR Not Detected (NotDetected)
--- NOTE | 2021-10-10 12:43 | XR_ITS ---
PROCEDURE INFORMATION: Exam: XR Chest Exam date and time: 10/10/2021 12:59 PM Age: 66 years old Clinical indication: Cough and shortness of breath; Sternal or substernal pain; Additional info: Cough, cp, SOB TECHNIQUE: Imaging protocol: Radiologic exam of the chest. Views: 1 view. COMPARISON: No relevant prior studies available. FINDINGS: Lungs: Unremarkable. No consolidation. Pleural spaces: Unremarkable. No pleural effusion. No pneumothorax. Heart/Mediastinum: Unremarkable. No cardiomegaly. Bones/joints: Unremarkable. IMPRESSION: No acute findings.
--- NOTE | 2021-10-10 12:45 | HMH.EDGENADL ---
ED Disposition Clinical Impression: Viral infection Disposition: Home, Self-Care Condition on Discharge: Good Additional Instructions: Follow-up with your primary care physician for symptoms likely related to viral infection seen in the emergency department. Please return to the emergency department with any new or worsening symptoms including increased shortness of breath, chest pain, fainting, inability to tolerate food or drink by mouth or any other new or concerning symptoms. Referrals: Anastasia Ha PA [Primary Care Provider] - - Critical Care Critical Care Time: No Attestation: On , the high probability of a clinically significant, sudden or life threatening deterioration of the following system(s) required my full and direct attention, intervention and personal management. The time I documented below is in addition to time spent performing reported procedures but includes the following listed in this critical care notation. Medical Decision Making - Kevon Inquiry Pt receiving controlled substance: No Vital Signs: 10/10/21 12:20 10/10/21 13:33 10/10/21 14:02 Temperature 99.6 F Temperature Source Oral Pulse Rate 96 H 91 H Pulse Rate [Radial] 103 H Respiratory Rate 18 Blood Pressure 111/53 L 115/85 Blood Pressure [Right Arm] 132/63 Blood Pressure Mean 72 Blood Pressure Mean [Right Arm] 86 Blood Pressure Source [Right Arm] Automatic Cuff Blood Pressure Position [Right Arm] Sitting 02 Sat by Pulse Oximetry 99 95 95 Oxygen Delivery Method Room Air 10/10/21 14:32 10/10/21 15:03 10/10/21 16:03 Temperature Temperature Source Pulse Rate 93 H 102 H 56 L Pulse Rate [Radial] Respiratory Rate Blood Pressure 121/66 104/63 L 100/43 L Blood Pressure [Right Arm] Blood Pressure Mean 79 74 62 Blood Pressure Mean [Right Arm] Blood Pressure Source [Right Arm] Blood Pressure Position [Right Arm] 02 Sat by Pulse Oximetry 92 L 93 L 93 L Oxygen Delivery Method 10/10/21 16:32 10/10/21 17:02 Temperature Temperature Source Pulse Rate 87 93 H Pulse Rate [Radial] Respiratory Rate Blood Pressure 101/59 L 104/50 L Blood Pressure [Right Arm] Blood Pressure Mean 67 66 Blood Pressure Mean [Right Arm] Blood Pressure Source [Right Arm] Blood Pressure Position [Right Arm] 02 Sat by Pulse Oximetry 94 L 95 Oxygen Delivery Method - Lab Data Lab Results 10/10/21 12:30: SARS-CoV-2 (PCR) Not detected, Influenza A Untype (PCR) Not detected, Influenza Type B (PCR) Not detected 10/10/21 12:45: WBC 6.6, RBC 4.93, Hgb 13.5, Hct 42.5, MCV 86.1, MCH 27.3, MCHC 31.7 L, RDW 14.4, Plt Count 202, MPV 8.5, Neut % (Auto) 67.2, Lymph % (Auto) 20.2, Fleming % (Auto) 8.5, Eos % (Auto) 4.1, Baso % (Auto) 3.6 H, Neut # (Auto) 4.4, Lymph # (Auto) 1.3, Fleming # (Auto) 0.6, Eos # (Auto) 0.3, Baso # (Auto) 0.2 10/10/21 12:45: D-Dimer 0.67 H 10/10/21 12:45: Sodium 137, Potassium 4.2, Chloride 102, Carbon Dioxide 27, Anion Gap 12.2, BUN 14, Creatinine 0.50 L, Estimated Creat Clear 45, Estimated GFR 123, Est GFR ( Amer) 149, Glucose 94, Calcium 9.4, Total Bilirubin 0.6, AST 51 H, ALT 40, Alkaline Phosphatase 56, Troponin I < 0.01, Total Protein 7.6, Albumin 4.4, Globulin 3.2, Albumin/Globulin Ratio 1.4 10/10/21 15:25: Troponin I < 0.01 10/10/21 17:58: Troponin I < 0.01 Result diagrams: 10/10/21 12:45 10/10/21 12:45 Orders (Tests/Meds): ED MEDICATIONS Discontinued Medications Generic Name Dose Route Start Last Admin Trade Name Freq PRN Reason Stop Dose Admin Lactated Ringer's 500 mls @ 999 mls/hr 10/10/21 12:45 10/10/21 13:24 Lactated Ringer's 1000 Ml Bag IV 10/10/21 13:15 999 mls/hr .Q31M ASHISH Administration Iopamidol 70 ml 10/10/21 17:56 10/10/21 17:57 Iopamidol-370 (76%);100ml Bottle IV 10/10/21 17:57 70 ml ONCE ONE Administration Ketorolac Tromethamine 30 mg 10/10/21 12:43 10/10/21 13:24 Ketorolac 30mg/Ml Vial IV 10/10/21
--- NOTE | 2021-10-10 12:50 | PC.NURSE ---
1250 XR AT BEDSIDE
--- NOTE | 2021-10-10 12:55 | ECG_ITS ---
APPROVED REPORT Exam: Resting ECG HR:96 bpm ECG Measurements Heart Rate 96 AXES TX 150 P 34 QRSd 77 QRS -13 QT 319 T 29 QTc 372 Conclusion SINUS RHYTHM WITH FREQUENT SUPRAVENTRICULAR PREMATURE COMPLEXES ABNORMAL RHYTHM ECG UNCONFIRMED REPORT Electronically signed by : Chano Espinoza MD 10/11/2021 14:06:20
[2021-10-10 12:56] LABS: Basophils # 0.2 K/mm3 (0-0.2); Basophils % 3.6 % (0.1-2.0); Eosinophils # 0.3 K/mm3 (0.0-0.4); Eosinophils % 4.1 % (0.1-12.0); Hematocrit 42.5 % (37.0-47.0); Hemoglobin 13.5 g/dL (12.2-16.2); Lymphocytes # 1.3 K/mm3 (0.7-4.5); Lymphocytes % 20.2 % (10-50); Mean Corpuscular HGB Conc 31.7 g/dL (31.8-35.4); Mean Corpuscular Hemoglobin 27.3 pg (27.0-31.2); Mean Corpuscular Volume 86.1 fl (81-99); Mean Platelet Volume 8.5 fl (7.4-10.4); Monocytes # 0.6 K/mm3 (0.1-1.0); Monocytes % 8.5 % (1.7-9.3); Neutrophils # 4.4 K/mm3 (1.8-7.8); Neutrophils % 67.2 % (37.0-80.0); Platelet Count 202 K/mm3 (142-424); Red Blood Count 4.93 M/mm3 (4.20-5.40); Red Cell Distribution Width 14.4 % (11.5-17.5); White Blood Count 6.6 K/mm3 (4.8-10.8)
--- NOTE | 2021-10-10 13:00 | PC.NURSE ---
1300 PT ASSISTED TO BR
[2021-10-10 13:04] LABS: Alanine Aminotransferase 40 U/L (12-78); Albumin Level 4.4 g/dl (3.5-5.0); Albumin/Globulin Ratio 1.4 (1.1-1.8); Alkaline Phosphatase 56 U/L (38-126); Anion Gap 12.2 mEq/L (5-15); Aspartate Amino Transferase 51 U/L (14-36); Bilirubin,Total 0.6 mg/dl (0.2-1.3); Blood Urea Nitrogen 14 mg/dl (7-17); Calcium 9.4 mg/dl (8.4-10.2); Carbon Dioxide 27 mmol/L (22.0-30.0); Chloride 102 mmol/L (98-107); Creatinine Clearance Estimated 45 mL/min (50-200); Estimated Glomerular Filt Rate 123 ml/min (>60); GFR (African American) 149 ML/MIN (>60); Globulin 3.2 g/dL (1.3-3.2); Glucose 94 mg/dl (74-100); Potassium 4.2 mmoL/L (3.5-5.1); Sodium 137 mmol/L (136-145); Total Protein,Serum 7.6 g/dl (6.3-8.2)
[2021-10-10 13:10] LABS: D-Dimer 0.67 ug/mL (0.0-0.5)
[2021-10-10 13:19] LABS: Troponin I < 0.01 ng/ml (0.00-0.034)
--- NOTE | 2021-10-10 14:05 | PC.NURSE ---
1405 ROUNDED ON PT, WATER PROVIDED. NO FURTHER NEEDS AT THIS TIME
--- NOTE | 2021-10-10 14:42 | PC.NURSE ---
ROUNDED ON PT AT THIS TIME, NO NEEDS VOICED. AT BEDSIDE
--- NOTE | 2021-10-10 15:23 | PC.NURSE ---
LAB AT BEDSIDE TO COLLECT REPEAT TROP
--- NOTE | 2021-10-10 15:41 | PC.NURSE ---
UPDATED PT ON POC, AWAITING LAB RESULTS. REPORTS COUGH IS BETTER. NO NEEDS AT THIS TIME. AT BEDSIDE
[2021-10-10 16:11] LABS: Troponin I < 0.01 ng/ml (0.00-0.034)
--- NOTE | 2021-10-10 17:06 | CT_ITS ---
PROCEDURE INFORMATION: Exam: CTA Chest With Contrast Exam date and time: 10/10/21 05:20 PM Age: 66 years old Clinical indication: Shortness of breath and other: Chest pain; Additional info: Elevated dimer, chest pain TECHNIQUE: Imaging protocol: Computed tomographic angiography of the chest with contrast. 3D rendering (Not supervised by radiologist): MIP and/or 3D reconstructed images were created by the technologist. Radiation optimization: All CT scans at this facility use at least one of these dose optimization techniques: automated exposure control; mA and/or kV adjustment per patient size (includes targeted exams where dose is matched to clinical indication); or iterative reconstruction. Contrast material: ISOVUE; Contrast volume: 70 ml; Contrast route: INTRAVENOUS (IV); COMPARISON: CR XR CHEST PORTABLE 10/10/21 12:59 PM FINDINGS: Pulmonary arteries: Normal. No pulmonary emboli. Aorta: Unremarkable. No aortic aneurysm. No aortic dissection. Lungs: Unremarkable. No consolidation. No masses. Pleural spaces: Unremarkable. No pneumothorax. No pleural effusion. Heart: Unremarkable. No cardiomegaly. No pericardial effusion. Lymph nodes: Unremarkable. No enlarged lymph nodes. Bones/joints: Unremarkable. No acute fracture. Soft tissues: Unremarkable. IMPRESSION: No acute findings.
--- NOTE | 2021-10-10 17:20 | PC.NURSE ---
ED MD AT BEDSIDE TO DISCUSS UPDATED POC WITH PT AND FAMILY
--- NOTE | 2021-10-10 17:21 | PC.NURSE ---
PT TO CT SCAN AT THIS TIME PER WC
--- NOTE | 2021-10-10 17:24 | PC.NURSE ---
pt gone to rad
--- NOTE | 2021-10-10 17:31 | PC.NURSE ---
martin came to us and said that the line blew while giving contrast and asked if we could come and put a new one in
--- NOTE | 2021-10-10 17:40 | PC.NURSE ---
IV RESTARTED FOR CT PROCEDURE, #20 R AC, PT TOLERATED WELL
--- NOTE | 2021-10-10 17:49 | PC.NURSE ---
PT RETURNED FROM CT
--- NOTE | 2021-10-10 17:53 | PC.NURSE ---
pt in room coughing a lot
[2021-10-10 18:34] LABS: Troponin I < 0.01 ng/ml (0.00-0.034)
--- NOTE | 2021-10-10 18:35 | PC.NURSE ---
1835 PT AMBULATING TO BR, NO NEEDS AT THIS TIME
== END 2021-10-10 19:00 | disposition home or self-care (01) ==
PROVIDERS: Emergency Provider Student in an Organized Health Care Education/Training Program; PCP Physician Assistant
DX: B34.9 Viral infection, unspecified (principal); R11.2 Nausea with vomiting, unspecified; R00.0 Tachycardia, unspecified; Z87.891 Personal history of nicotine dependence; Z20.822 Contact with and (suspected) exposure to COVID-19
CPT/HCPCS: 36415; 71045; 71275; 80053; 84484; 85025; 85378; 93005; 96361; 96374; 96375; 99285; C9803; J2405; Q9967; U0003; U0005

== ENCOUNTER → 2021-10-13 08:40 | Outpatient (CLI) | payer MEDICARE, MEDICAID, SELFPAY ==
[2021-10-13 08:56] LABS: Adenovirus,PCR Not Detected (NotDetected); Bordetella Pertussis Not Detected (NotDetected); Chlamydophila Pneumoniae, PCR Not Detected (NotDetected); Coronavirus 19, PCR Not Detected (NotDetected); Coronavirus 229E Not Detected (NotDetected); Coronavirus NL63 Not Detected (NotDetected); Coronavirus OC43 Not Detected (NotDetected); Coronovirus HKU1,PCR Not Detected (NotDetected); Human Metapneumovirus Not Detected (NotDetected); Influenza A, PCR Not Detected (NotDetected); Influenza AH1, 2009 Not Detected (NotDetected); Influenza AH1, PCR Not Detected (NotDetected); Influenza AH3,PCR Not Detected (NotDetected); Influenza B, PCR Not Detected (NotDetected); Mycoplasma Pneumoniae, PCR Not Detected (NotDetected); Parainfluenza 1, PCR Not Detected (NotDetected); Parainfluenza 2, PCR Not Detected (NotDetected); Parainfluenza 3, PCR Not Detected (NotDetected); Parainfluenza 4, PCR Not Detected (NotDetected); Rhinovirus/Enterovirus Not Detected (NotDetected)
[2021-10-13 12:01] LABS: Respiratory Syncytial Virus Detected (NotDetected)
== END ==
PROVIDERS: PCP Physician Assistant; Visit Provider Physician Assistant
DX: Z20.822 Contact with and (suspected) exposure to COVID-19 (principal); B97.4 Respiratory syncytial virus as the cause of diseases classified elsewhere
CPT/HCPCS: 87581; 87632; 87798; C9803; U0003; U0005

== ENCOUNTER → 2021-11-03 09:51 | Outpatient (CLI) | payer MEDICARE, MEDICAID, SELFPAY ==
[2021-11-03 10:13] LABS: Adenovirus,PCR Not Detected (NotDetected); Bordetella Pertussis Not Detected (NotDetected); Chlamydophila Pneumoniae, PCR Not Detected (NotDetected); Coronavirus 19, PCR Not Detected (NotDetected); Coronavirus 229E Not Detected (NotDetected); Coronavirus NL63 Not Detected (NotDetected); Coronavirus OC43 Not Detected (NotDetected); Coronovirus HKU1,PCR Not Detected (NotDetected); Human Metapneumovirus Not Detected (NotDetected); Influenza A, PCR Not Detected (NotDetected); Influenza AH1, 2009 Not Detected (NotDetected); Influenza AH1, PCR Not Detected (NotDetected); Influenza AH3,PCR Not Detected (NotDetected); Influenza B, PCR Not Detected (NotDetected); Mycoplasma Pneumoniae, PCR Not Detected (NotDetected); Parainfluenza 1, PCR Not Detected (NotDetected); Parainfluenza 2, PCR Not Detected (NotDetected); Parainfluenza 3, PCR Not Detected (NotDetected); Parainfluenza 4, PCR Not Detected (NotDetected); Respiratory Syncytial Virus Not Detected (NotDetected); Rhinovirus/Enterovirus Not Detected (NotDetected)
== END ==
PROVIDERS: PCP Physician Assistant; Visit Provider Physician Assistant
DX: Z20.822 Contact with and (suspected) exposure to COVID-19 (principal); R05.9 Cough, unspecified; R06.02 Shortness of breath
CPT/HCPCS: 87581; 87632; 87798; C9803; U0003; U0005

== ENCOUNTER → 2021-11-09 08:47 | Outpatient (CLI) | payer MEDICARE, MEDICAID, SELFPAY ==
--- NOTE | 2021-11-09 08:53 | XR_ITS ---
FINAL REPORT CLINICAL HISTORY: cough after RSV COMPARISON: October 10, 2021 FINDINGS: Two views of the chest were obtained. The heart size and pulmonary vascularity are within normal limits. The mediastinum is normal. No acute pulmonary abnormality is identified. There is no pneumothorax. The bony thorax is intact. IMPRESSION: No active cardiopulmonary disease. Reviewed, Interpreted and Dictated by Davey Saunders III, MD Transcribed by Marilu Montiel Authenticated and [facility]
== END ==
PROVIDERS: PCP Physician Assistant; Visit Provider Physician Assistant
DX: R05.9 Cough, unspecified (principal)
CPT/HCPCS: 71046

== ENCOUNTER → 2022-01-13 09:47 | Outpatient (CLI) | payer MEDICARE, MEDICAID, SELFPAY ==
[2022-01-13 14:52] LABS: Alanine Aminotransferase 33 U/L (12-78); Albumin Level 4.9 g/dl (3.5-5.0); Albumin/Globulin Ratio 1.8 (1.1-1.8); Alkaline Phosphatase 95 U/L (38-126); Anion Gap 19.8 mEq/L (5-15); Aspartate Amino Transferase 40 U/L (14-36); Bilirubin,Total 0.6 mg/dl (0.2-1.3); Blood Urea Nitrogen 16 mg/dl (7-17); Calcium 10.7 mg/dl (8.4-10.2); Carbon Dioxide 29 mmol/L (22.0-30.0); Chloride 99 mmol/L (98-107); Chol/HDL Ratio 2.7 (1-3.5); Cholesterol 153 mg/dl (140-200); Estimated Glomerular Filt Rate 100 ml/min (>60); GFR (African American) 121 ML/MIN (>60); Globulin 2.7 g/dL (1.3-3.2); Glucose 143 mg/dl (74-100); HDL Cholesterol 57 mg/dl (40-60); Potassium 4.8 mmoL/L (3.5-5.1); Sodium 143 mmol/L (136-145); Total Protein,Serum 7.6 g/dl (6.3-8.2); Triglycerides 222 mg/dl (30-150); VLDL Cholesterol 44 mg/dL (0-40)
[2022-01-13 14:54] LABS: Basophils # 0.1 K/mm3 (0-0.2); Basophils % 1.1 % (0.1-2.0); Eosinophils # 0.1 K/mm3 (0.0-0.4); Eosinophils % 2.1 % (0.1-12.0); Hematocrit 43.7 % (37.0-47.0); Hemoglobin 13.6 g/dL (12.2-16.2); Lymphocytes % 30.7 % (10-50); Mean Corpuscular Hemoglobin 26.7 pg (27.0-31.2); Mean Platelet Volume 9.2 fl (7.4-10.4); Monocytes # 0.4 K/mm3 (0.1-1.0); Neutrophils # 3.9 K/mm3 (1.8-7.8); Platelet Count 256 K/mm3 (142-424); Red Blood Count 5.09 M/mm3 (4.20-5.40); Red Cell Distribution Width 14.8 % (11.5-17.5); White Blood Count 6.4 K/mm3 (4.8-10.8)
[2022-01-13 15:03] LABS: Direct LDL Cholesterol 55.62 mg/dL (100-129)
[2022-01-13 15:18] LABS: Creatinine,Urine Random 19 mg/dL (Not Estab.)
[2022-01-13 15:20] LABS: Microalbumin/Creatinine Ratio 32.6
[2022-01-13 15:23] LABS: Thyroid Stimulating Hormone 2.43 uIU/mL (0.465-4.68)
[2022-01-13 17:13] LABS: Intact Parathyroid Hormone 57.6 pg/mL (7.5-53.5)
[2022-01-15 12:10] LABS: Calcium, Ionized 5.3 mg/dL (4.5-5.6)
== END ==
PROVIDERS: PCP Physician Assistant; Visit Provider Physician Assistant
DX: E11.9 Type 2 diabetes mellitus without complications (principal); E55.9 Vitamin D deficiency, unspecified; Z79.4 Long term (current) use of insulin
CPT/HCPCS: 80053; 80061; 82043; 82306; 82330; 82570; 83036; 83970; 84443; 85025

== ENCOUNTER → 2022-01-17 13:26 | Outpatient (CLI) | payer MEDICARE, MEDICAID, SELFPAY ==
[2022-01-14 17:08] LABS: Intact Parathyroid Hormone 60.5 pg/mL (7.5-53.5)
== END ==
PROVIDERS: PCP Physician Assistant; Visit Provider Physician Assistant
DX: E21.5 Disorder of parathyroid gland, unspecified (principal)
CPT/HCPCS: 83970

== ENCOUNTER → 2022-03-03 11:25 | Outpatient (CLI) | payer MEDICARE, MEDICAID, SELFPAY ==
[2022-03-03 15:11] LABS: Adenovirus,PCR Not Detected (NotDetected); Bordetella Pertussis Not Detected (NotDetected); Chlamydophila Pneumoniae, PCR Not Detected (NotDetected); Coronavirus 19, PCR Not Detected (NotDetected); Coronavirus 229E Not Detected (NotDetected); Coronavirus NL63 Not Detected (NotDetected); Coronavirus OC43 Not Detected (NotDetected); Coronovirus HKU1,PCR Not Detected (NotDetected); Human Metapneumovirus Not Detected (NotDetected); Influenza A, PCR Not Detected (NotDetected); Influenza AH1, 2009 Not Detected (NotDetected); Influenza AH1, PCR Not Detected (NotDetected); Influenza AH3,PCR Not Detected (NotDetected); Influenza B, PCR Not Detected (NotDetected); Mycoplasma Pneumoniae, PCR Not Detected (NotDetected); Parainfluenza 1, PCR Not Detected (NotDetected); Parainfluenza 2, PCR Not Detected (NotDetected); Parainfluenza 3, PCR Not Detected (NotDetected); Parainfluenza 4, PCR Not Detected (NotDetected); Respiratory Syncytial Virus Not Detected (NotDetected); Rhinovirus/Enterovirus Not Detected (NotDetected)
== END ==
PROVIDERS: PCP Nurse Practitioner Family; Visit Provider Nurse Practitioner Family
DX: J02.9 Acute pharyngitis, unspecified (principal); R05.9 Cough, unspecified
CPT/HCPCS: 87581; 87632; 87798; C9803; U0003; U0005

== ENCOUNTER 2022-07-20 14:09 | Emergency (ER) | payer MEDICARE, MEDICAID, SELFPAY ==
[2022-07-20] VITALS (7 sets, daily range): BP systolic 85–109; BP diastolic 38–60; PULSE 84–104; RESP 17; TEMP 36.9–37; O2SAT 97–99; BMI 23.8
--- NOTE | 2022-07-20 14:13 | ECG_ITS ---
APPROVED REPORT Exam: Resting ECG HR:85 bpm ECG Measurements Heart Rate 85 AXES [place] 165 P 35 QRSd 81 QRS -16 QT 347 T 16 QTc 389 Conclusion SINUS RHYTHM LOW QRS VOLTAGE IN PRECORDIAL LEADS [QRS DEFLECTION < 1.0 mV IN CHEST LEADS] BORDERLINE ECG UNCONFIRMED REPORT Electronically signed by : Chano Espinoza MD 07/21/2022 21:40:29
--- NOTE | 2022-07-20 14:26 | CT_ITS ---
FINAL REPORT TECHNIQUE: Axial CT images of the abdomen and pelvis were obtained after the administration of IV contrast. Coronal reformatted images were also obtained and reviewed. This study was performed with techniques to keep radiation doses as low as reasonably achievable (ALARA). Individualized dose reduction techniques using automated exposure control or adjustment of mA and/or kV according to the patient's size were employed. CLINICAL HISTORY: left sided abd pain COMPARISON: None FINDINGS: CT OF THE ABDOMEN AND PELVIS WITH CONTRAST Abdomen: There is mild fatty infiltration of the liver post cholecystectomy. The spleen is unremarkable. No adrenal mass is present. The pancreas has an unremarkable appearance. Mild left renal scarring. The aorta is normal in caliber. There is no free fluid or adenopathy. No mass or abnormal fluid collection is seen. Mild diffuse colonic wall thickening consistent with colitis. Pelvis: The appendix is not identified. The urinary bladder is unremarkable. No inflammatory process is seen. There is no evidence of mass or adenopathy. There is no evidence of bowel obstruction. Post hysterectomy. IMPRESSION: Findings consistent with colitis. Fatty liver. Reviewed, Interpreted and Dictated by Davey Saunders III, MD Transcribed by Kira Duncan Authenticated and [facility]
--- NOTE | 2022-07-20 14:26 | CT_ITS ---
FINAL REPORT TECHNIQUE: Thin section axial CT images of the chest were obtained with contrast. 3D reformatted images were also obtained. This study was performed with techniques to keep radiation doses as low as reasonably achievable (ALARA). Individualized dose reduction techniques using automated exposure control or adjustment of mA and/or kV according to the patient's size were employed. CLINICAL HISTORY: Shortness of breath COMPARISON: 10/10/2021 FINDINGS: There is no evidence of pulmonary embolism. There is no evidence of thoracic aortic aneurysm or dissection. There is no evidence of mediastinal or hilar mass or adenopathy. There is no evidence of pulmonary mass or nodule. Mild bibasilar atelectasis. No chest wall abnormality. Limited images of the upper abdomen demonstrate mild fatty infiltration of the liver post cholecystectomy. IMPRESSION: No evidence of pulmonary embolism. No mass or localized inflammatory process. Reviewed, Interpreted and Dictated by Davey Saunders III, MD Transcribed by Kira Duncan Authenticated and . [facility]
[2022-07-20 14:40] LABS: Chloride 94 mmol/L (98-107); Potassium 3.7 mmoL/L (3.5-5.1); Sodium 133 mmol/L (136-145)
[2022-07-20 14:41] LABS: Basophils # 0.1 K/mm3 (0-0.2); Eosinophils % 0.2 % (0.1-12.0); Hematocrit 38.5 % (37.0-47.0); Hemoglobin 12.4 g/dL (12.2-16.2); Lymphocytes # 1.6 K/mm3 (0.7-4.5); Lymphocytes % 30.8 % (10-50); Mean Corpuscular HGB Conc 32.1 g/dL (31.8-35.4); Mean Corpuscular Hemoglobin 26.6 pg (27.0-31.2); Mean Corpuscular Volume 82.9 fl (81-99); Mean Platelet Volume 8.4 fl (7.4-10.4); Monocytes # 0.7 K/mm3 (0.1-1.0); Monocytes % 12.6 % (1.7-9.3); Neutrophils # 2.9 K/mm3 (1.8-7.8); Neutrophils % 55.3 % (37.0-80.0); Platelet Count 177 K/mm3 (142-424); Red Blood Count 4.65 M/mm3 (4.20-5.40); Red Cell Distribution Width 14.7 % (11.5-17.5); White Blood Count 5.3 K/mm3 (4.8-10.8)
[2022-07-20 14:42] LABS: Alanine Aminotransferase 75 U/L (12-78); Aspartate Amino Transferase 100 U/L (14-36); Blood Urea Nitrogen 23 mg/dl (7-17); Creatinine Clearance Estimated 45 mL/min (50-200); Estimated Glomerular Filt Rate 62 ml/min (>60); GFR (African American) 76 ML/MIN (>60)
[2022-07-20 14:43] LABS: Albumin Level 4.2 g/dl (3.5-5.0); Albumin/Globulin Ratio 1.6 (1.1-1.8); Alkaline Phosphatase 36 U/L (38-126); Anion Gap 16.7 mEq/L (5-15); Bilirubin,Total 0.5 mg/dl (0.2-1.3); Calcium 8.4 mg/dl (8.4-10.2); Carbon Dioxide 26 mmol/L (22.0-30.0); Globulin 2.7 g/dL (1.3-3.2); Glucose 87 mg/dl (74-100); Total Protein,Serum 6.9 g/dl (6.3-8.2)
[2022-07-20 14:52] LABS: NT Pro Brain Natriuretic Pep. < 20.0 pg/mL (0-125)
--- NOTE | 2022-07-20 14:53 | PC.NURSE ---
PT MEDICATED PER EMAR, WARM BLANKET PROVIDED. FAMILY AT BEDSIDE
--- NOTE | 2022-07-20 14:56 | HMH.EDGENADL ---
Discharge Plan Disposition Patient Disposition: Home, Self-Care Condition: Fair Prescriptions Prescriptions: New ondansetron 4 mg tablet,disintegrating 4 mg PO Q8H 4 Days Qty: 12 0RF ciprofloxacin HCl [Cipro] 500 mg tablet 500 mg PO BID Qty: 20 0RF metronidazole 500 mg tablet 500 mg PO BID 7 Days Qty: 14 0RF No Action (DME) Dexcom G6 Sensor Device See Rx Instructions .Route Qty: 3 0RF Rx Instructions: As directed (DME) Dexcom G6 Transmitter Device See Rx Instructions .Route Qty: 1 3RF Rx Instructions: As directed (DME) Dexcom G6 Weatherization Technician Misc See Rx Instructions .Route Qty: 1 0RF Rx Instructions: As directed fluticasone propionate [Flonase Allergy Relief] 50 mcg/actuation spray,suspension 1 spray INTRANASAL QDAY 30 Days Qty: 9.9 2RF Rx Instructions: administer into each nostril montelukast 10 mg tablet 10 mg PO HS Qty: 30 2RF meclizine 25 mg tablet See Rx Instructions .ROUTE .COMPLEX Qty: 60 2RF Dose Instruction: TAKE 1 TABLET BY MOUTH TWICE DAILY FOR DIZZINESS Rx Instructions: TAKE 1 TABLET BY MOUTH TWICE DAILY FOR DIZZINESS nitroglycerin 0.4 mg tablet, sublingual 0.4 mg SUBLINGUAL Q5M PRN (Reason: chest pain) Qty: 90 0RF (DME) blood-glucose meter [Blood Glucose Monitoring] Kit See Rx Instructions .ROUTE .MEDSUPPLY Qty: 1 0RF Rx Instructions: As directed albuterol sulfate 90 mcg/actuation HFA aerosol inhaler 2 puff IH Q4-6H PRN (Reason: shortness of breath or wheezing) Qty: 8.5 0RF fluticasone propion-salmeterol [Advair Diskus] 250-50 mcg/dose blister with device 1 inh inhalation BID Qty: 60 2RF levofloxacin 500 mg tablet 500 mg PO Q24H Qty: 30 0RF (DME) OneTouch Verio test strips Strip See Rx Instructions .ROUTE .COMPLEX Qty: 100 0RF Dose Instruction: USE DIRECTED Rx Instructions: USE DIRECTED cholecalciferol (vitamin D3) 1,250 mcg (50,000 unit) capsule 1,250 mcg PO WEEKLY Qty: 8 0RF cholecalciferol (vitamin D3) 25 mcg (1,000 unit) capsule 25 mcg PO DAILY Qty: 90 3RF (DME) pen needle, diabetic [BD Bina 2nd Gen Pen Needle] 32 gauge x 5/32 needle See Rx Instructions .ROUTE .COMPLEX Qty: 264 3RF Dose Instruction: USE 1 PEN NEEDLE THREE TIMES DAILY OR DIRECTED Rx Instructions: USE 1 PEN NEEDLE THREE TIMES DAILY OR DIRECTED glipizide 10 mg tablet See Rx Instructions .ROUTE .COMPLEX Qty: 180 0RF Dose Instruction: Take 1 tablet by mouth twice daily Rx Instructions: Take 1 tablet by mouth twice daily metformin 1,000 mg tablet See Rx Instructions .ROUTE .COMPLEX Qty: 90 3RF Dose Instruction: Take 1/2 (one-half) tablet by mouth twice daily Rx Instructions: Take 1/2 (one-half) tablet by mouth twice daily carvedilol 12.5 mg tablet See Rx Instructions .ROUTE .COMPLEX Qty: 180 1RF Dose Instruction: Take 1 tablet by mouth twice daily Rx Instructions: Take 1 tablet by mouth twice daily buspirone 10 mg tablet See Rx Instructions .ROUTE .COMPLEX Qty: 60 2RF Dose Instruction: Take 1 tablet by mouth twice daily Rx Instructions: Take 1 tablet by mouth twice daily cyclobenzaprine 5 mg tablet See Rx Instructions .ROUTE .COMPLEX Qty: 90 0RF Dose Instruction: Take 1 tablet by mouth three times daily as needed for muscle spasm Rx Instructions: Take 1 tablet by mouth three times daily as needed for muscle spasm Farxiga 10 mg tablet See Rx Instructions .ROUTE .COMPLEX Qty: 90 0RF Dose Instruction: Take 1 tablet by mouth once daily Rx Instructions: Take 1 tablet by mouth once daily pantoprazole 40 mg tablet,delayed release (DR/EC) See Rx Instructions .ROUTE .COMPLEX Qty: 90 0RF Dose Instruction: Take 1 tablet by mouth once daily Rx Instructions: Take 1 tablet by mouth once daily insulin glargine [Lantus So
--- NOTE | 2022-07-20 15:00 | PC.NURSE ---
pt to ct
[2022-07-20 15:01] LABS: Influenza A, PCR Not Detected (NotDetected); Influenza B, PCR Not Detected (NotDetected)
--- NOTE | 2022-07-20 15:02 | PC.NURSE ---
PT TO CT
[2022-07-20 15:13] LABS: Procalcitonin 0.076 ng/mL (0.0-2.0)
--- NOTE | 2022-07-20 15:16 | EXP.PHA.CONS ---
Pharmacy Consult Date: 07/20/22 Time: 15:16 Referring provider: DR. JEFFERS Reason for Consult:: VANCOMYCIN DOSING Allergies Allergy/AdvReac Type Severity Reaction Status Date / Time erythromycin base Allergy Mild I-HIVES Verified 03/25/22 08:29 [From E-MYCIN] prednisone Allergy Mild Hyper Verified 03/25/22 08:29 Home Medications Medication Instructions Recorded Confirmed Type aspirin 81 mg chewable tablet 81 mg PO DAILY HEART HEALTHY 01/09/20 03/25/22 History blood sugar diagnostic (OneTouch #100 ea 02/09/21 03/25/22 Rx Verio test strips) cholecalciferol (vitamin D3) 1,250 1,250 mcg PO WEEKLY Vitamin D 04/14/21 03/25/22 Rx mcg (50,000 unit) capsule Deficiency #8 caps cholecalciferol (vitamin D3) 25 25 mcg PO DAILY #90 caps 04/14/21 03/25/22 Rx mcg (1,000 unit) capsule blood-glucose meter (Blood Glucose #1 ea 07/29/21 03/25/22 Rx Monitoring kit) nitroglycerin 0.4 mg sublingual 0.4 mg sublingual Q5M PRN chest 07/29/21 03/25/22 Rx tablet pain #90 tabs pen needle, diabetic 32 gauge x #264 ea 10/13/21 03/25/22 Rx 5/32 (BD Bina 2nd Gen Pen Needle) albuterol sulfate 90 mcg/actuation 2 puff inhalation Q4-6H PRN 11/09/21 03/25/22 Rx aerosol inhaler shortness of breath or wheezing #8.5 grams fluticasone 250 mcg-salmeterol 50 1 inh inhalation BID #60 ea 11/09/21 03/25/22 Rx mcg/dose blistr powdr for inhalation (Advair Diskus) glipizide 10 mg tablet See Rx Instructions .Route 12/01/21 03/25/22 Rx .COMPLEX #180 tabs metformin 1,000 mg tablet See Rx Instructions .Route 12/07/21 03/25/22 Rx .COMPLEX #90 tabs blood-glucose meter,continuous #1 ea 01/13/22 03/25/22 Rx (Dexcom G6 Primary Care Nurse Practitioner) blood-glucose sensor (Dexcom G6 #3 ea 01/13/22 03/25/22 Rx Sensor device) blood-glucose transmitter (Dexcom #1 ea 01/13/22 03/25/22 Rx G6 Transmitter device) carvedilol 12.5 mg tablet See Rx Instructions .Route 02/24/22 03/25/22 Rx .COMPLEX #180 tabs levofloxacin 500 mg tablet 500 mg PO Q24H #30 tabs 03/03/22 03/25/22 Rx fluticasone propionate 50 1 spray intranasal QDAY 30 days 03/25/22 03/25/22 Rx mcg/actuation nasal #9.9 grams spray,suspension (Flonase Allergy Relief) meclizine 25 mg tablet See Rx Instructions .Route 03/25/22 03/25/22 Rx .COMPLEX #60 tabs montelukast 10 mg tablet 10 mg PO HS #30 tabs 03/25/22 03/25/22 Rx buspirone 10 mg tablet See Rx Instructions .Route 04/12/22 Rx .COMPLEX #60 tabs cyclobenzaprine 5 mg tablet See Rx Instructions .Route 05/02/22 Rx .COMPLEX #90 tabs cetirizine 10 mg tablet See Rx Instructions .Route 05/13/22 Rx .COMPLEX #180 tabs dapagliflozin 10 mg tablet See Rx Instructions .Route 05/13/22 Rx (Farxiga) .COMPLEX #90 tabs insulin glargine 100 unit/mL (3 See Rx Instructions .Route 05/13/22 Rx mL) subcutaneous pen (Lantus .COMPLEX #15 mL Solostar U-100 Insulin) pantoprazole 40 mg tablet,delayed See Rx Instructions .Route 05/13/22 Rx release .COMPLEX #90 tabs insulin NPH-regular 70-30 U-100 See Rx Instructions .Route 05/16/22 Rx insulin 100 unit/mL subcutaneous .COMPLEX #15 mL pen (Humulin 70/30 U-100 KwikPen) atorvastatin 40 mg tablet See Rx Instructions .Route 05/30/22 Rx .COMPLEX #82 tabs famotidine 40 mg tablet See Rx Instructions .Route 05/30/22 Rx .COMPLEX #8 tabs ramipril 5 mg capsule See Rx Instructions .Route 05/30/22 Rx .COMPLEX #90 caps memantine 5 mg tablet See Rx Instructions .Route 07/13/22 Rx .COMPLEX #90 tabs New Prescriptions to Start Prescriptions: Height: 1.47 m Weight: 51.71 kg Laboratory Results:: Laboratory Results - last 24 hr 07/20/22 14:15: WBC 5.3, RBC 4.65, Hgb 12.4, Hct 38.5, MCV 82.9, MCH 26.6 L, MCHC 32.1, RDW 14.7, Plt Count 177, MPV 8.4, Neut % (Auto) 55.3, Lymph % (Auto) 30.8, [place] % (Auto) 12.6 H, Eos % (Auto) 0.2, Baso % (Auto) 1.0, Neut # (Auto) 2.9, Lymph # (Auto) 1.6, [place] # (Auto) 0.7, Eos # (Auto) 0.0, Baso # (Auto) 0.1 07/20/22 14:15:
[2022-07-20 16:47] LABS: Coronavirus 19, PCR Detected (NotDetected)
--- NOTE | 2022-07-20 17:49 | PC.NURSE ---
ROUNDED ON PT, NO NEEDS AT THIS TIME. FAMILY AT BEDSIDE
== END 2022-07-20 18:00 | disposition home or self-care (01) ==
PROVIDERS: Emergency Provider Emergency Medicine
DX: U07.1 COVID-19 (principal); E86.1 Hypovolemia; E86.0 Dehydration; R55 Syncope and collapse; K52.9 Noninfective gastroenteritis and colitis, unspecified
CPT/HCPCS: 71275; 74177; 80053; 83605; 83880; 84145; 85025; 87040; 87635; 87636; 93005; 96361; 96365; 96366; 96375; 96376; 99285; C9803; Q9967; U0003; U0005

== ENCOUNTER → 2022-08-15 13:37 | Outpatient (CLI) | payer MEDICARE, MEDICAID, SELFPAY ==
[2022-08-15 12:34] LABS: Alanine Aminotransferase 55 U/L (12-78); Albumin Level 4.7 g/dl (3.5-5.0); Albumin/Globulin Ratio 1.6 (1.1-1.8); Alkaline Phosphatase 73 U/L (38-126); Anion Gap 18.2 mEq/L (5-15); Aspartate Amino Transferase 64 U/L (14-36); Bilirubin,Total 0.8 mg/dl (0.2-1.3); Blood Urea Nitrogen 12 mg/dl (7-17); Calcium 9.6 mg/dl (8.4-10.2); Carbon Dioxide 27 mmol/L (22.0-30.0); Chloride 99 mmol/L (98-107); Chol/HDL Ratio 2.7 (1-3.5); Cholesterol 149 mg/dl (140-200); Estimated Glomerular Filt Rate 100 ml/min (>60); GFR (African American) 121 ML/MIN (>60); Glucose 155 mg/dl (74-100); HDL Cholesterol 55 mg/dl (40-60); Potassium 4.2 mmoL/L (3.5-5.1); Sodium 140 mmol/L (136-145); Total Protein,Serum 7.7 g/dl (6.3-8.2); Triglycerides 248 mg/dl (30-150); VLDL Cholesterol 50 mg/dL (0-40)
[2022-08-15 12:36] LABS: Basophils % 0.8 % (0.1-2.0); Eosinophils # 0.1 K/mm3 (0.0-0.4); Eosinophils % 1.8 % (0.1-12.0); Hematocrit 39.5 % (37.0-47.0); Hemoglobin 12.4 g/dL (12.2-16.2); Lymphocytes # 1.3 K/mm3 (0.7-4.5); Mean Corpuscular HGB Conc 31.5 g/dL (31.8-35.4); Mean Corpuscular Hemoglobin 26.2 pg (27.0-31.2); Mean Corpuscular Volume 83.1 fl (81-99); Mean Platelet Volume 8.2 fl (7.4-10.4); Monocytes # 0.4 K/mm3 (0.1-1.0); Monocytes % 7.9 % (1.7-9.3); Neutrophils # 3.5 K/mm3 (1.8-7.8); Neutrophils % 65.6 % (37.0-80.0); Platelet Count 286 K/mm3 (142-424); Red Blood Count 4.75 M/mm3 (4.20-5.40); Red Cell Distribution Width 15.2 % (11.5-17.5); White Blood Count 5.3 K/mm3 (4.8-10.8)
[2022-08-15 12:44] LABS: Direct LDL Cholesterol 57.41 mg/dL (100-129)
[2022-08-15 12:50] LABS: 25-OH Vitamin D, Total 28.6 ng/mL (30-100)
[2022-08-15 13:06] LABS: Thyroid Stimulating Hormone 1.99 uIU/mL (0.465-4.68)
== END ==
PROVIDERS: PCP Physician Assistant; Visit Provider Physician Assistant
DX: E11.9 Type 2 diabetes mellitus without complications (principal); E55.9 Vitamin D deficiency, unspecified; E78.5 Hyperlipidemia, unspecified; Z79.4 Long term (current) use of insulin
CPT/HCPCS: 80053; 80061; 82306; 83036; 84443; 85025

== ENCOUNTER → 2022-08-22 10:28 | Outpatient (CLI) | payer MEDICARE, MEDICAID, SELFPAY ==
--- NOTE | 2022-08-22 | US_ITS ---
FINAL REPORT CLINICAL HISTORY: Previous smoker, HTN, DM, hyperlipidemia, previous angioplasty, CAD, hx MA, right claudication, bilateral rest pain COMPARISON: None FINDINGS: ANKLE-BRACHIAL PRESSURE INDICES Pressure indices are as follows: RIGHT LOWER EXTREMITY: Ankle-brachial pressure index: 1.2 Comments: Normal LEFT LOWER EXTREMITY: Ankle-brachial pressure index: 1.2 Comments: Normal IMPRESSION: No evidence of significant obstructive peripheral vascular disease of the lower extremities Reviewed, Interpreted and Dictated by Wan Miranda MD Transcribed by Kira Duncan Authenticated and [facility]
== END ==
PROVIDERS: PCP Physician Assistant; Visit Provider Physician Assistant
DX: R09.89 Other specified symptoms and signs involving the circulatory and respiratory systems (principal)
CPT/HCPCS: 93923

== ENCOUNTER → 2022-08-31 14:10 | Outpatient (CLI) | payer MEDICARE, MEDICAID, SELFPAY | LOC: RT 14:10 | PROVIDERS: PCP Physician Assistant; Visit Provider Physician Assistant | DX: I25.10 Atherosclerotic heart disease of native coronary artery without angina pectoris (principal); R06.02 Shortness of breath | CPT/HCPCS: 93306 ==

== ENCOUNTER 2023-05-04 22:27 | Outpatient (CLI) | payer MEDICARE, SELFPAY ==
[2023-05-04 18:44] LABS: Basophils # 0.1 K/mm3 (0-0.2); Eosinophils # 0.1 K/mm3 (0.0-0.4); Eosinophils % 2.2 % (0.1-12.0); Hematocrit 46.8 % (37.0-47.0); Hemoglobin 14.2 g/dL (12.2-16.2); Lymphocytes # 1.7 K/mm3 (0.7-4.5); Lymphocytes % 31.2 % (10-50); Mean Corpuscular HGB Conc 30.5 g/dL (31.8-35.4); Mean Corpuscular Hemoglobin 27.6 pg (27.0-31.2); Mean Corpuscular Volume 90.6 fl (81-99); Mean Platelet Volume 9.6 fl (7.4-10.4); Monocytes # 0.5 K/mm3 (0.1-1.0); Monocytes % 8.5 % (1.7-9.3); Neutrophils # 3.2 K/mm3 (1.8-7.8); Neutrophils % 57.2 % (37.0-80.0); Platelet Count 198 K/mm3 (142-424); Red Blood Count 5.16 M/mm3 (4.20-5.40); Red Cell Distribution Width 14.8 % (11.5-17.5); White Blood Count 5.5 K/mm3 (4.8-10.8)
[2023-05-04 19:33] LABS: Albumin Level 4.7 g/dl (3.5-5.0); Albumin/Globulin Ratio 1.6 (1.1-1.8); Anion Gap 13.1 mEq/L (5-15); Aspartate Amino Transferase 47 U/L (14-36); Bilirubin,Total 0.7 mg/dl (0.2-1.3); Blood Urea Nitrogen 16 mg/dl (7-17); Calcium 9.8 mg/dl (8.4-10.2); Carbon Dioxide 28 mmol/L (22.0-30.0); Chloride 102 mmol/L (98-107); Cholesterol 176 mg/dl (140-200); Estimated Glomerular Filt Rate 123 ml/min (>60); GFR (African American) 148 ML/MIN (>60); Globulin 2.9 g/dL (1.3-3.2); Glucose 161 mg/dl (74-100); Potassium 4.1 mmoL/L (3.5-5.1); Sodium 139 mmol/L (136-145); Total Protein,Serum 7.6 g/dl (6.3-8.2); Triglycerides 174 mg/dl (30-150); VLDL Cholesterol 35 mg/dL (0-40)
[2023-05-04 19:34] LABS: Alanine Aminotransferase 42 U/L (12-78); Alkaline Phosphatase 63 U/L (38-126); Chol/HDL Ratio 2.8 (1-3.5); HDL Cholesterol 62 mg/dl (40-60)
[2023-05-04 19:45] LABS: Direct LDL Cholesterol 71.67 mg/dL (100-129)
[2023-05-04 19:50] LABS: 25-OH Vitamin D, Total 31.2 ng/mL (30-100)
[2023-05-04 20:04] LABS: Thyroid Stimulating Hormone 2.73 uIU/mL (0.465-4.68)
[2023-05-04 22:19] LABS: Hemoglobin A1C 8.5 % (4.0-6.0)
== END 2023-05-04 23:59 ==
LOC: LAB.DROPOF 22:28
PROVIDERS: PCP Physician Assistant; Visit Provider Physician Assistant
DX: E11.9 Type 2 diabetes mellitus without complications (principal); E55.9 Vitamin D deficiency, unspecified; Z79.4 Long term (current) use of insulin; Z79.899 Other long term (current) drug therapy
CPT/HCPCS: 80053; 80061; 82306; 83036; 84443; 85025

== ENCOUNTER 2023-09-19 09:49 | Outpatient (CLI) | payer MEDICARE, SELFPAY | END 2023-09-19 23:59 | disposition home or self-care (01) | LOC: LAB.DROPOF 09-20 09:50 | PROVIDERS: PCP Physician Assistant; Visit Provider Physician Assistant | DX: N39.0 Urinary tract infection, site not specified (principal); B95.1 Streptococcus, group B, as the cause of diseases classified elsewhere | CPT/HCPCS: 87086; 87088; 87186 ==

== ENCOUNTER 2024-12-10 13:09 | Outpatient (CLI) | payer MEDICARE, SELFPAY ==
--- NOTE | 2024-12-10 13:12 | MM_ITS ---
PROCEDURE INFORMATION: Exam: MG Bilateral Screening 3D Mammography Exam date and time: 12/10/2024 1:30 PM Age: 69 years old Clinical indication: Screening examination. A maternal aunt had breast cancer. TECHNIQUE: Imaging protocol: Bilateral Screening tomosynthesis and 2D mammography including computer-aided detection (CAD) when performed. COMPARISON: No relevant prior studies available.If prior mammograms are provided, I am happy to add an addendum. FINDINGS: MAMMOGRAPHY: Breast composition: The breasts are heterogeneously dense, which may obscure small masses. Mass: None. Architectural distortion: None. Calcifications: No suspicious calcifications. Asymmetric density: None. Skin thickening: None. Axillary adenopathy: None. IMPRESSION: No mammographic evidence of malignancy. Annual screening is recommended unless otherwise clinically indicated. ASSESSMENT: BI-RADS Category 1: Negative.
--- OUTSIDE RECORDS SUMMARY | 2024-12-10 13:12 | XMS_ITS | Clinical Summary ---
Author Organization [facility] Address [address] [place] [address] Care Team Providers Care First Coat Operator Name Role Phone Unavailable Primary Care Provider Unavailabl e Social History Tobacco Use Types Packs/Day Years Used Date Smoking Tobacco: Never Assessed Comments Unknown Sex and Gender Information Value Date Recorded Sex Assigned at Not on file Legal Sex Female 6:07 PM EDT Gender Identity Not on file Sexual Orientation Not on file Last Filed Vital Signs Vital Sign Reading Time Taken Comments Blood Pressure 130/80 08/31/2022 3:19 PM EDT Pulse 101 08/31/2022 3:19 PM EDT Temperature - - Respiratory Rate - - Oxygen Saturation - - Inhaled Oxygen Concentration - - Weight 49 kg (108 lb) 08/31/2022 3:19 PM EDT Height 147.3 cm (4' 10 ) 08/31/2022 3:19 PM EDT Body Mass Index 22.57 08/31/2022 3:19 PM EDT Plan of Treatment Health Maintenance Due Date Last Done Comments [facility]-Bone Density Scan 1955 [facility]-Depression Screening 1955 [facility]-/Child/Adol SDOH Screenings 1955 [facility]- SDOH Screenings 1973 [facility]-Adult SDOH Screenings 1973 CT Colonography 02/21/2000 Colonoscopy 02/21/2000 FIT-DNA 02/21/2000 FIT 02/21/2000 FOBT 02/21/2000 Sigmoidoscopy 02/21/2000 [facility]-Colorectal Cancer Screening 02/21/2000 [facility]-Pneumococcal Vaccine: 50 + Years (1 of 1 - PCV) 2005 [facility]-Zoster Vaccines (1 of 2) 2005 [id number] Vaccine (1 - 20 24-25 season) 2024 [facility]-Influenza Vaccine (#1) 2024 [facility]-DTaP,Tdap,and Td Vaccine s (2 - Td or Tdap) 10/04/2028 10/04/2018 [facility]-RSV Vaccine: 60+ Years o r (1 - 1-dose 75+ series) 2030 HPV Vaccines Aged Out No longer eligi ble based on patient's age to complete this topic [facility]-HIB Vaccines Aged Out No longer e ligible based on patient's age to complete this topic [facility]-Hepatitis A Vaccines Aged Out No longer eligible based on patient's age to complete this topic [facility]-IPV Vaccines Aged Out No longer e ligible based on patient's age to complete this topic [facility]-Rotavirus Vaccines Aged Out No lo nger eligible based on patient's age to complete this topic Insurance [facility] MEDICARE [facility] MEDICAID
== END 2024-12-10 23:59 | disposition home or self-care (01) ==
LOC: RAD 13:10
PROVIDERS: PCP Physician Assistant; Visit Provider Physician Assistant
DX: Z12.31 Encounter for screening mammogram for malignant neoplasm of breast (principal); R92.333 Mammographic heterogeneous density, bilateral breasts; Z80.3 Family history of malignant neoplasm of breast
CPT/HCPCS: 77063; 77067

== ENCOUNTER 2024-12-13 13:12 | Outpatient (CLI) | payer MEDICARE, SELFPAY ==
--- NOTE | 2024-12-13 13:16 | XR_ITS ---
FINAL REPORT CLINICAL HISTORY: UNSTABLE BALANCE COMPARISON: None FINDINGS: AP, lateral, oblique and odontoid views of the cervical spine were obtained. There is no prior exam for comparison. There is no acute fracture or malalignment. Vertebral body height is preserved. Disc height is preserved. The precervical soft tissues are normal. If symptoms persist consider MRI for further evaluation. IMPRESSION: No acute cervical spine abnormality identified. If symptoms persist, consider MRI for further evaluation. Reviewed, Interpreted and Dictated by Jacqui An MD Transcribed by Maria Eugenia Barbosa Authenticated and [facility]
== END 2024-12-13 23:59 | disposition home or self-care (01) ==
LOC: RAD 13:13
PROVIDERS: PCP Physician Assistant; Visit Provider Physician Assistant
DX: R26.89 Other abnormalities of gait and mobility (principal)
CPT/HCPCS: 72050